=== PATIENT | male | born 1930 | race Caucasian/White ===

== ENCOUNTER 2019-08-26 23:24 | Inpatient (IN) ==
[2019-08-26] MEDS ORDERED: NITROGLYCERIN 2% OINTMENT 30GM TUBE EXT STA (23:45)
[2019-08-26] MEDS ORDERED: SODIUM CHLORIDE 0.9% 1000ML 1,000 ML IV SCH (23:45)
[2019-08-26] MEDS ORDERED: fentaNYL citrate 100 MCG/2 ML VIAL IV PRN (23:45)
[2019-08-26] MEDS ORDERED: FAMOTIDINE 20MG/5ML IV PUSH IV STA (23:45)
--- NOTE | 2019-08-26 23:50 | Emergency Department Note ---
History of Present Illness General Chief complaint: Chest Pain Stated complaint: CHEST PAIN Time Seen by Provider: 08/26/19 23:33 Source: patient Mode of arrival: EMS Limitations: no limitations History of Present Illness Provider complaint: Left-sided chest pain Onset (ago): hour(s) 5 Location: chest Radiation: neck Severity: moderate Pain Consistency: + constant Current Pain Intensity: 4 Quality: + constant Relieved By: + none Exacerbated By: + movement Associated symptoms: + cough; no fever/chills, no nausea/vomiting, no shortness of breath and no syncope Treatments prior to arrival: aspirin and other (Nitro) This 88-year-old male patient [facility] who presents via EMS due to complaints of chest pain. Patient states the chest pain originally started earlier this evening after dinner. Patient states chest pain began to slowly radiate up towards his neck and left jaw. No accompanying shortness of breath. No radiation into the back or arms. Patient states it does feel similar to his prior heart attacks. Patient with a significant cardiac history including heart attack, CABG, and pacemaker. Patient states he has had a mild cough recently, no difficulty breathing with it, no hemoptysis, no fevers or chills. Patient denies any exposure to any known coronavirus positive individual. 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 Patient states staff at the facility gave him nitro which helped a little but did not resolve his pain. He states EMS then gave him aspirin and additional nitro which again helped but his pain was not completely resolved. Patient states he has had increased reflux type symptoms recently, and staff only gave him ice water for it. Patient states the pain tonight does not feel like what he perceives as his prior reflux. Patient states he is he does not take a medication for reflux daily. Pt seen during a time of high acuity and national emergency pandemic while wearing PPE. Home Medications Home Medications Medication Instructions Recorded Confirmed Type atorvastatin 10 mg PO DAILY 08/26/19 08/26/19 History carbamazepine 600 mg PO Q12 08/26/19 08/26/19 History docusate sodium [Colace] 100 mg PO DAILY 08/26/19 08/26/19 History furosemide 80 mg PO BID 08/26/19 08/26/19 History ipratropium-albuterol 3 ml INHALATION QID 08/26/19 08/27/19 History ondansetron HCl 4 mg PO Q6 PRN 08/26/19 08/26/19 History potassium chloride 40 meq PO BID 08/26/19 08/26/19 History warfarin 5 mg PO HS 08/26/19 08/26/19 History loratadine 10 mg PO DAILY 08/27/19 08/27/19 History lorazepam 0.25 mg PO BID 08/27/19 08/27/19 History losartan 25 mg PO DAILY 08/27/19 08/27/19 History metoprolol succinate 25 mg PO DAILY 08/27/19 08/27/19 History montelukast 10 mg PO DAILY 08/27/19 08/27/19 History pantoprazole 40 mg PO DAILY 08/27/19 08/27/19 History rosuvastatin 10 mg PO DAILY 08/27/19 08/27/19 History sertraline 50 mg PO DAILY 08/27/19 08/27/19 History theophylline 400 mg PO DAILY 08/27/19 08/27/19 History tiotropium bromide [Spiriva with 1 cap INHALATION DAILY 08/27/19 08/27/19 History HandiHaler] Allergies Allergy/AdvReac Type Severity Reaction Status Date / Time dalteparin,porcine Allergy Unknown Verified 08/27/19 00:17 enalapril Allergy Unknown Verified 08/27/19 00:17 erythromycin base Allergy Unknown Verified 08/27/19 00:17 lidocaine Allergy Unknown Verified 08/27/19 00:17 Penicillins Allergy Unknown Verified 08/27/19 00:17 propofol Allergy Unknown Verified 08/27/19 00:17 simvastatin [From Zocor] Allergy Unknown Verified 08/27/19 00:17 tinzaparin,porcine Allergy Unknown Verified 08/27/19 00:17 anesthesia [id number] Allergy Unknown Uncoded 08/27/19 00:17 LWM Heparin Allergy Unknown Uncoded 08/27/19 00:17 porcine extract skin test Allergy Unknown Uncoded 08/27/19 00:17 Past Med/Surg History Medical History Adjustment disorder Anemia CAD (coronary artery disease) of artery bypass graft Cardiac pacemaker (Acute) CKD (chronic kidney disease) COPD (chronic obstructive pulmonary disease) Diabetes mellitus type 2 in nonobese DVT (deep venous thrombosis) MELVIN (generalized anxiety disorder) GERD (gastroesophageal reflux disease) Hyperlipidemia Hypertension TIP (obstructive sleep apnea) Osteoarthritis Paroxysmal atrial fibrillation Polyneuropathy Pulmonary embolism Sick sinus syndrome Trigeminal neuralgia Surgical History S/P CABG (coronary artery bypass graft) Social History Communication Ability: Effective 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 and A total of 10 systems reviewed and were otherwise negative Physical Exam Vital Signs Vital Signs - 24 hr 08/26/19 23:30 08/27/19 00:24 Temperature 36.9 C Temperature Source Oral Pulse Rate 73 Pulse Rate [Right] 61 Pulse Rhythm [Right] Regular Pulse Strength [Right] Normal Respiratory Rate 16 16 Respiratory Effort / Characteristics Non-Labored Spontaneous Non-Labored Spontaneous Respiratory Depth Normal Normal Blood Pressure 117/66 Blood Pressure [Right Arm] 114/59 L Blood Pressure Mean 83 Blood Pressure Mean [Right Arm] 77 Blood Pressure Position Lying Pulse Oximetry 94 96 Oxygen Delivery Method Nasal Cannula Nasal Cannula Oxygen Flow Rate 2 2 Sepsis Recent Fever Within 48 Hours No Sepsis Action Taken by Nursing No Action Required GENERAL: alert, well appearing, well nourished, no distress, non-toxic EYE EXAM: normal conjunctiva, PERRL and EOM's grossly intact OROPHARYNX: no exudate, no erythema, lips, buccal mucosa, and tongue normal and mucous membranes are moist NECK: supple, no nuchal rigidity, no adenopathy, non-tender LUNGS: Clear to auscultation. Normal chest wall mechanics, no w/r/r HEART: no murmurs, S1 normal and S2 normal, no reproducible chest wall tenderness ABDOMEN: abdomen soft, non-tender, normo-active bowel sounds, no masses, no rebound or guarding. BACK: Back is symmetrical on inspection and there is no deformity, no midline tenderness, no CVA tenderness. SKIN: no rashes and no bruising UPPER EXTREMITIES: upper extremities are grossly normal. FROM, nml pulses b/l. LOWER EXTREMITIES: trace pitting edema. FROM, nml pulses b/l. NEURO EXAM: Normal sensorium, cranial nerves II-XII grossly intact, normal speech, no gross weakness of arms, no gross weakness of legs. Gross sensation intact. Course Course 0040: Patient updated on results at bedside, daughter at bedside as well. Patient states he is still having slight pain, although medications are helping. 0055: Case discussed with Dr. Manjarrez. Administered Medications Albuterol (Duoneb) 3 ml NEB QIDR KAITLYN Stop: 09/26/19 06:59 Last Admin: 08/27/19 19:09 Dose: 3 ml Documented by: [id number] Admin: 08/27/19 15:20 Dose: 3 ml Documented by: [id number] Admin: 08/27/19 11:18 Dose: 3 ml Documented by: [id number] Admin: 08/27/19 06:59 Dose: 3 ml Documented by: [id number] Carbamazepine (Tegretol) 400 mg PO Q12H KAITLYN Stop: 09/26/19 20:59 Last Admin: 08/27/19 20:59 Dose: 400 mg Documented by: [id number] Docusate Sodium (Colace) 100 mg PO DAILY KAITLYN Stop: 09/26/19 08:59 Last Admin: 08/27/19 08:40 Dose: 100 mg Documented by: [id number] Insulin Aspart (Novolog Flexpen) 0 units SC ACHS KAITLYN Stop: 09/26/19 11:29 Last Admin: 08/27/19 22:11 Dose: Not Given Documented by: [id number] Cosigned by: [id number] Admin: 08/27/19 17:56 Dose: Not Given Documented by: [id number] Cosigned by: [id number] Admin: 08/27/19 11:32 Dose: Not Given Documented by: [id number] Cosigned by: [id number] Loratadine (Claritin) 10 mg PO DAILY KAITLYN Stop: 09/26/19 08:59 Last Admin: 08/27/19 08:40 Dose: 10 mg Documented by: [id number] Lorazepam (Ativan) 0.25 mg PO BID KAITLYN Stop: 09/26/19 08:59 Last Admin: 08/27/19 22:11 Dose: Not Given Documented by: [id number] Admin: 08/27/19 08:39 Dose: 0.25 mg Documented by: [id number] Losartan Potassium (Cozaar) 25 mg PO DAILY KAITLYN Stop: 09/26/19 08:59 Last Admin: 08/27/19 08:40 Dose: 25 mg Documented by: [id number] Metoprolol Succinate (Toprol Xl) 25 mg PO DAILY KAITLYN Stop: 09/26/19 08:59 Last Admin: 08/27/19 08:41 Dose: 25 mg Documented by: [id number] Montelukast Sodium (Singulair) 10 mg PO HS KAITLYN Stop: 09/26/19 20:59 Last Admin: 08/27/19 21:00 Dose: 10 mg Documented by: [id number] Pantoprazole Sodium (Protonix) 40 mg PO DAILY KAITLYN Stop: 09/26/19 08:59 Last Admin: 08/27/19 08:42 Dose: 40 mg Documented by: [id number] Potassium Chloride (Klor-Con M20) 20 meq PO BID KAITLYN Stop: 09/26/19 08:59 Last Admin: 08/27/19 21:02 Dose: 20 meq Documented by: [id number] Admin: 08/27/19 08:42 Dose: 20 meq Documented by: [id number] Rosuvastatin Calcium (Crestor) 10 mg PO DAILY KAITLYN Stop: 09/26/19 08:59 Last Admin: 08/27/19 08:42 Dose: 10 mg Documented by: [id number] Sertraline HCl (Zoloft) 50 mg PO DAILY KAITLYN Stop: 09/26/19 08:59 Last Admin: 08/27/19 08:42 Dose: 50 mg Documented by: [id number] Theophylline (Theophylline Er) 400 mg PO DAILY KAITLYN Stop: 09/26/19 08:59 Last Admin: 08/27/19 08:42 Dose: 400 mg Documented by: [id number] Umeclidinium [place] (Incruse Ellipta) 1 puffs INH DAILY KAITLYN Stop: 09/26/19 08:59 Last Admin: 08/27/19 08:43 Dose: 1 puffs Documented by: [id number] Warfarin Sodium (Coumadin) 2.5 mg PO DAILY@1600 [facility] Stop: 09/26/19 15:59 Last Admin: 08/27/19 17:09 Dose: 2.5 mg Documented by: [id number] Discontinued Medications Aspirin (Ecotrin Ectab) 81 mg PO QAM [facility] Stop: 09/26/19 08:59 Last Admin: 08/27/19 08:40 Dose: 81 mg Documented by: [id number] Famotidine (Pepcid 20mg Iv Push) 20 mg IV ONE STA Stop: 08/26/19 23:46 Last Admin: 08/27/19 00:10 Dose: 20 mg Documented by: [id number] Fentanyl Citrate (Fentanyl Citrate) 50 mcg IV Q15M PRN PRN Reason: Pain Stop: 09/09/19 23:44 Last Admin: 08/27/19 01:04 Dose: 50 mcg Documented by: [id number] Sodium Chloride (Nss 1000ml) 1,000 mls @ 100 mls/hr IV .Q10H KAITLYN Stop: 09/25/19 23:44 Last Infusion: 08/27/19 08:29 Dose: 0 mls/hr Documented by: [id number] Admin: 08/27/19 00:10 Dose: 100 mls/hr Documented by: [id number] Sodium Chloride (1/2 Nss) 1,000 mls @ 50 mls/hr IV .Q20H KAITLYN Stop: 09/26/19 02:29 Last Infusion: 08/27/19 08:28 Dose: 0 mls/hr Documented by: [id number] Admin: 08/27/19 04:49 Dose: 50 mls/hr Documented by: [id number] Dextrose/Sodium Chloride (D5w And 1/2nss) 1,000 mls @ 60 mls/hr IV .[id number] KAITLYN Stop: 09/26/19 07:29 Last Infusion: 08/27/19 12:59 Dose: 0 mls/hr Documented by: [id number] Admin: 08/27/19 08:47 Dose: 60 mls/hr Documented by: [id number] Insulin Aspart (Novolog Flexpen) 0 units SC ACHS KAITLYN Stop: 09/26/19 04:30 Last Admin: 08/27/19 07:19 Dose: Not Given Documented by: [id number] Cosigned by: [id number] Insulin Aspart (Novolog Flexpen) 0 units SC Q6 [facility]N Stop: 09/26/19 05:59 Last Admin: 08/27/19 06:17 Dose: Not Given Documented by: [id number] Cosigned by: [id number] Montelukast Sodium (Singulair) 10 mg PO DAILY KAITLYN Stop: 09/26/19 08:59 Last Admin: 06/24/20 09:18 Dose: Not Given Documented by: [id number] Nitroglycerin (Nitro-Bid 2%) 1 inch EXT NOW STA Stop: 08/26/19 23:46 Last Admin: 08/27/19 00:09 Dose: 1 inch Documented by: [id number] Non-Formulary Medication (Carbamazepine) 600 mg PO Q12 KAITLYN Last Admin: 08/27/19 07:19 Dose: Not Given Documented by: [id number] Medical Decision Making Differential Diagnosis Differential diagnoses includes but is not limited to acute coronary syndrome, myocardial infarction, pericarditis, pulmonary embolus, aortic dissection, pneumonia, pneumothorax, musculoskeletal, shingles, esophageal. Medical Records Attestation: I reviewed the patient's medical records. Home Medications Current Medication List: was personally reviewed by me Laboratory Data Attestation: I reviewed the patient's lab results. Result diagrams: 08/27/19 06:38 08/27/19 06:38 Lab Results 08/26/19 08/26/19 08/26/19 Range/Units 23:14 23:14 23:14 WBC 7.48 (4.8-10.8) K/uL RBC 3.58 L (4.7-6.1) M/uL Hgb 11.2 L (14.0-18.0) g/dL Hct 35.6 L (42-52) % MCV 99.4 (80-100) fL MCH 31.3 (25-34) pg MCHC 31.5 L (32-36) g/dL RDW Std Deviation 52.0 H (36.4-46.3) fL RDW Coeff of Cherelle 14.5 (11.5-14.5) % Plt Count 310 (130-400) K/uL MPV 10.9 H (7.4-10.4) fL Immature Gran % (Auto) 0.4 % Neut % (Auto) 78.2 % Lymph % (Auto) 13.1 % [place] % (Auto) 7.0 % Eos % (Auto) 1.2 % Baso % (Auto) 0.1 % Neut # (Auto) 5.85 (1.4-6.5) K/uL Lymph # (Auto) 0.98 L (1.2-3.4) K/uL [place] # (Auto) 0.52 (0.11-0.59) K/uL Eos # (Auto) 0.09 (0-0.5) K/uL Baso # (Auto) 0.01 (0-0.2) K/uL Immature Gran # (Auto) 0.03 H (0.00-0.02) K/uL PT 20.9 H (9.0-12.0) Seconds INR 2.1 H (0.9-1.1) Sodium 141 (136-145) mmol/L Potassium 4.5 (3.5-5.1) mmol/L Chloride 108 H (98-107) mmol/L Carbon Dioxide 27 (21-32) mmol/L Anion Gap 6.0 (3-11) BUN 18 (7-18) mg/dl Creatinine 1.12 (0.6-1.4) mg/dl Est Cr Clr Drug Dosing 46.5 ml/min Est GFR ( Amer) 68.1 Est GFR (Non-Af Amer) 58.7 BUN/Creatinine Ratio 16.0 (10-20) Glucose 94 (70-99) mg/dl Calcium 8.4 L (8.5-10.1) mg/dl Magnesium 2.2 (1.8-2.4) mg/dl Total Bilirubin 0.3 (0.2-1) mg/dl AST 10 L (15-37) U/L ALT 10 L (12-78) U/L Alkaline Phosphatase 128 H (45-117) U/L Troponin I 0.030 (0-0.045) ng/ml NT-Pro-B Natriuret Pep 766 (0-1800) pg/ml Total Protein 6.5 (6.4-8.2) gm/dl Albumin 2.4 L (3.4-5.0) gm/dl Globulin 4.1 H (2.5-4.0) gm/dl Albumin/Globulin Ratio 0.6 L (0.9-2) Lipase 126 (73-393) U/L TSH (0.300-4.500) uIu/ml Carbamazepine (4-12) mcg/ml Theophylline (10-20) mcg/ml 08/27/19 08/27/19 Range/Units 01:45 01:45 WBC (4.8-10.8) K/uL RBC (4.7-6.1) M/uL Hgb (14.0-18.0) g/dL Hct (42-52) % MCV (80-100) fL MCH (25-34) pg MCHC (32-36) g/dL RDW Std Deviation (36.4-46.3) fL RDW Coeff of Cherelle (11.5-14.5) % Plt Count (130-400) K/uL MPV (7.4-10.4) fL Immature Gran % (Auto) % Neut % (Auto) % Lymph % (Auto) % [place] % (Auto) % Eos % (Auto) % Baso % (Auto) % Neut # (Auto) (1.4-6.5) K/uL Lymph # (Auto) (1.2-3.4) K/uL [place] # (Auto) (0.11-0.59) K/uL Eos # (Auto) (0-0.5) K/uL Baso # (Auto) (0-0.2) K/uL Immature Gran # (Auto) (0.00-0.02) K/uL PT (9.0-12.0) Seconds INR (0.9-1.1) Sodium (136-145) mmol/L Potassium (3.5-5.1) mmol/L Chloride (98-107) mmol/L Carbon Dioxide (21-32) mmol/L Anion Gap (3-11) BUN (7-18) mg/dl Creatinine (0.6-1.4) mg/dl Est Cr Clr Drug Dosing ml/min Est GFR ( Amer) Est GFR (Non-Af Amer) BUN/Creatinine Ratio (10-20) Glucose (70-99) mg/dl Calcium (8.5-10.1) mg/dl Magnesium (1.8-2.4) mg/dl Total Bilirubin (0.2-1) mg/dl AST (15-37) U/L ALT (12-78) U/L Alkaline Phosphatase (45-117) U/L Troponin I 0.033 (0-0.045) ng/ml NT-Pro-B Natriuret Pep (0-1800) pg/ml Total Protein (6.4-8.2) gm/dl Albumin (3.4-5.0) gm/dl Globulin (2.5-4.0) gm/dl Albumin/Globulin Ratio (0.9-2) Lipase (73-393) U/L TSH 2.880 (0.300-4.500) uIu/ml Carbamazepine 12.1 H* (4-12) mcg/ml Theophylline 3 L (10-20) mcg/ml Imaging Data My Impression: X-ray: I interpreted the following studies. Chest: A single view study of the chest was reviewed and was negative for effusion, pulmonary edema, or wide mediastinum. Pacemaker and sternotomy wires noted. Questionable slight increased interstitial markings in the left lower lobe without focal consolidation, mild cardiomegaly noted. ECG Data Attestation: I personally reviewed and interpreted this ECG as follows: Indication: + chest pain Rate (beats per minute): 68 Rhythm: + other (paced) ECG Intervals/blocks: + IVCD and + Prolonged QT ECG [place]: + Left axis deviation ECG ST segments: + Nonspecific ST abnormalities Blood Pressure Blood Pressure Findings: Normal blood pressure Blood Pressure Disposition: further management by hospitalist [facility] Narrative Patient well-appearing here despite complaints. Patient with a significant cardiac history and elevated heart score complaining of pain that felt similar to his prior heart attack. Patient's EKG paced, no obvious changes otherwise noted. Patient's first troponin negative. Patient's chest x-ray reassuring. Patient was hemodynamically stable. He was given additional nitro paste after being given nitro by [facility] staff and EMS. Patient already had aspirin prior to arrival. Patient stated pain was improved but not entirely resolved. Patient was then given additional fentanyl for pain control. Case was discussed with hospitalist for additional evaluation management. At this time I do not s uspect dissection, PE, pneumonia, coronavirus, perforation, GI bleed, tamponade, effusion. Pacemaker appears to be functioning appropriately. Patient did not appear to be in any distress on the emergency room. I discussed all results with him and a daughter at bedside and they verbalized understanding and were in agreement with plan. An order was placed for continuous cardiac monitoring. The monitor shows a rate of _66 with paced rhythm. Impression & Plan Chest pain, Cardiac pacemaker Discharge Plan Visit Data *Final* Discharge Date/Time: 08/27/19 03:06 Chief Complaint: Chest Pain Stated Complaint: CHEST PAIN ED Provider: Kristin Hidalgo Discharge Problem: Chest pain, Cardiac pacemaker Patient Disposition: Admitted As Inpatient Discharge Instructions Interventions: ED Discharge Assessment Last Done: 08/27/19 03:06 Discharge Problem: Chest pain Qualifiers: Chest pain type: unspecified Qualified Code(s): R07.9 - Chest pain, unspecified
[2019-08-27] LABS: Basophils # (auto) 0.01 K/uL (0-0.2); Basophils % (auto) 0.1 %; Eosinophils # (auto) 0.09 K/uL (0-0.5); Eosinophils % (auto) 1.2 %; Hematocrit (blood only) 35.6 % (42-52); Hemoglobin 11.2 g/dL (14.0-18.0); Immature Granulocytes # (auto) 0.03 K/uL (0.00-0.02); Immature Granulocytes % (auto) 0.4 %; Lymphocytes # (auto) 0.98 K/uL (1.2-3.4); Lymphocytes % (auto) 13.1 %; Mean Corpuscular Hemoglobin 31.3 pg (25-34); Mean Corpuscular Hgb Conc 31.5 g/dL (32-36); Mean Corpuscular Volume 99.4 fL (80-100); Mean Platelet Volume 10.9 fL (7.4-10.4); Monocytes # (auto) 0.52 K/uL (0.11-0.59); Neutrophils # (auto) 5.85 K/uL (1.4-6.5); Neutrophils % (auto) 78.2 %; Platelet Count 310 K/uL (130-400); RDW Coefficient of Variation 14.5 % (11.5-14.5); Red Blood Count 3.58 M/uL (4.7-6.1); White Blood Count 7.48 K/uL (4.8-10.8)
[2019-08-27 00:10] LABS: INR 2.1 (0.9-1.1); Prothrombin Time 20.9 Seconds (9.0-12.0)
[2019-08-27 00:22] LABS: Albumin Level 2.4 gm/dl (3.4-5.0); Calcium 8.4 mg/dl (8.5-10.1); Creatinine Clr Calc Pharmacy 46.5 ml/min; Est GFR (African American) 68.1; Est GFR (Non-African American) 58.7; Magnesium 2.2 mg/dl (1.8-2.4); Potassium 4.5 mmol/L (3.5-5.1)
[2019-08-27 00:27] LABS: Albumin Globulin Ratio 0.6 (0.9-2); Bilirubin,Total 0.3 mg/dl (0.2-1); Globulin 4.1 gm/dl (2.5-4.0); Total Protein 6.5 gm/dl (6.4-8.2); Troponin I 0.03 ng/ml (0-0.045)
--- NOTE | 2019-08-27 02:14 | History & Physical Report ---
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 on Coumadin, INR therapeutic hypertension, BP on the lower side hyperlipidemia on statin Rx trigeminal neuralgia on carbamazepine Rx, carbamazepine level slightly supratherapeutic DM 2 diet-controlled, well-controlled as of recent outpatient hemoglobin A1c of 5.08 January 2019 chronic anemia, hemoglobin at baseline past tobacco abuse OBS as per case management PCU Aspirin for secondary CAD prevention Continue home beta-rodney, statin Rx Follow troponin Update lipid profile TTE, Cardiology consult RE ACS N.p.o., hold Coumadin for now until patient seen by Cardiology in anticipation of procedure. Remove Nitropaste given current borderline BP. Appropriate to hold carbamazepine for now given supratherapeutic level, recheck level tomorrow a.m. ISS BG goal [id number], update hemoglobin A1c DVT prophylaxis. IV heparin if INR less than 2 while Coumadin on hold until patient seen by cardiology. Full code Text document was generated using [employer] voice recognition software. It may contain grammatical or spelling errors. Kindly contact undersigned for clarification of any documentation item in question. History of Present Illness Chief Complaint: Chest pain Primary Care Provider: [facility] History obtained from patient and records. 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 Patient confined at [facility] last month for recurrent DVT left lower extremity. INR at that time was noted to be subtherapeutic. Possible medication noncompliance, deconditioning as per records. Patient transferred to [facility] for placement. Last night around dinnertime, patient noted achy left chest pain going to his neck and left jaw similar to heart attacks in the past. No shortness of breath, no diaphoresis. No new cough/flulike symptoms. Relief with aspirin and nitroglycerin administered by EMS. Patient brought to the ER for evaluation. Nitropaste placed at the ER. 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 Allergies Allergy/AdvReac Type Severity Reaction Status Date / Time dalteparin,porcine Allergy Unknown Verified 08/27/19 00:17 enalapril Allergy Unknown Verified 08/27/19 00:17 erythromycin base Allergy Unknown Verified 08/27/19 00:17 lidocaine Allergy Unknown Verified 08/27/19 00:17 Penicillins Allergy Unknown Verified 08/27/19 00:17 propofol Allergy Unknown Verified 08/27/19 00:17 simvastatin [From Zocor] Allergy Unknown Verified 08/27/19 00:17 tinzaparin,porcine Allergy Unknown Verified 08/27/19 00:17 anesthesia [id number] Allergy Unknown Uncoded 08/27/19 00:17 LWM Heparin Allergy Unknown Uncoded 08/27/19 00:17 porcine extract skin test Allergy Unknown Uncoded 08/27/19 00:17 Home Medications Home Medications Medication Instructions Recorded Confirmed Type atorvastatin 10 mg PO DAILY 08/26/19 08/26/19 History carbamazepine 600 mg PO Q12 08/26/19 08/26/19 History docusate sodium [Colace] 100 mg PO DAILY 08/26/19 08/26/19 History furosemide 80 mg PO BID 08/26/19 08/26/19 History ipratropium-albuterol 3 ml INHALATION QID 08/26/19 08/27/19 History ondansetron HCl 4 mg PO Q6 PRN 08/26/19 08/26/19 History potassium chloride 40 meq PO BID 08/26/19 08/26/19 History warfarin 5 mg PO HS 08/26/19 08/26/19 History loratadine 10 mg PO DAILY 08/27/19 08/27/19 History lorazepam 0.25 mg PO BID 08/27/19 08/27/19 History losartan 25 mg PO DAILY 08/27/19 08/27/19 History metoprolol succinate 25 mg PO DAILY 08/27/19 08/27/19 History montelukast 10 mg PO DAILY 08/27/19 08/27/19 History pantoprazole 40 mg PO DAILY 08/27/19 08/27/19 History rosuvastatin 10 mg PO DAILY 08/27/19 08/27/19 History sertraline 50 mg PO DAILY 08/27/19 08/27/19 History theophylline 400 mg PO DAILY 08/27/19 08/27/19 History tiotropium bromide [Spiriva with 1 cap INHALATION DAILY 08/27/19 08/27/19 History HandiHaler] Past Med/Surg History Medical History Adjustment disorder Anemia CAD (coronary artery disease) of artery bypass graft Cardiac pacemaker (Acute) CKD (chronic kidney disease) COPD (chronic obstructive pulmonary disease) Diabetes mellitus type 2 in nonobese DVT (deep venous thrombosis) MELVIN (generalized anxiety disorder) GERD (gastroesophageal reflux disease) Hyperlipidemia Hypertension TIP (obstructive sleep apnea) Osteoarthritis Paroxysmal atrial fibrillation Polyneuropathy Pulmonary embolism Sick sinus syndrome Trigeminal neuralgia Surgical History S/P CABG (coronary artery bypass graft) Social History Communication Ability: Effective English Teacher Required: No Beliefs That Will Affect Care: None Other Information That Helps Us Care for You: No Feels Safe at Home: Yes Safety Concerns: Feels Safe At This Time Smoking Status: Former smoker Hx Alcohol Use: No Hx Substance Use: No Review of Systems Review of Systems: As per HPI, all 10 systems reviewed, all other ROS negative Physical Exam Physical Exam: GENERAL: Comfortable, slightly hard of hearing, no respiratory distress SKIN: Pallor , warm HEENT: [place] palpebral conjunctivae, no ptosis, moist buccal mucosa, nasal cannula in place NECK : Supple, no tenderness CHEST : Decreased breath sounds , no tenderness HEART : Bradycardic , no obvious murmurs ABDOMEN: Some distention, nontender EXTREMITIES : Minimal LE swelling, no LE tenderness, no other conspicuous deformities noted NEUROLOGIC : Coherent, no facial asymmetry, mild hearing impairment, no other gross focality Results & Data Results & Data ([facility]) Vital Signs (Past 12 Hours) Vital Signs Temp Pulse Pulse Resp BP BP Pulse Ox 08/27/19 01:50 51 L 16 112/56 L 94 06/24/20 00:24 61 16 114/59 L 96 08/26/19 23:30 36.9 C 73 16 117/66 94 Laboratory Results Laboratory Results WBC 7.48 K/uL (4.8-10.8) 08/26/19 23:14 RBC 3.58 M/uL (4.7-6.1) L 08/26/19 23:14 Hgb 11.2 g/dL (14.0-18.0) L 08/26/19 23:14 Hct 35.6 % (42-52) L 08/26/19 23:14 MCV 99.4 fL (80-100) 08/26/19 23:14 MCH 31.3 pg (25-34) 08/26/19 23:14 MCHC 31.5 g/dL (32-36) L 08/26/19 23:14 RDW Std Deviation 52.0 fL (36.4-46.3) H 08/26/19 23:14 RDW Coeff of Cherelle 14.5 % (11.5-14.5) 08/26/19 23:14 Plt Count 310 K/uL (130-400) 08/26/19 23:14 MPV 10.9 fL (7.4-10.4) H 08/26/19 23:14 Immature Gran % (Auto) 0.4 % 08/26/19 23:14 Neut % (Auto) 78.2 % 08/26/19 23:14 Lymph % (Auto) 13.1 % 08/26/19 23:14 [place] % (Auto) 7.0 % 08/26/19 23:14 Eos % (Auto) 1.2 % 08/26/19 23:14 Baso % (Auto) 0.1 % 08/26/19 23:14 Neut # (Auto) 5.85 K/uL (1.4-6.5) 08/26/19 23:14 Lymph # (Auto) 0.98 K/uL (1.2-3.4) L 08/26/19 23:14 [place] # (Auto) 0.52 K/uL (0.11-0.59) 08/26/19 23:14 Eos # (Auto) 0.09 K/uL (0-0.5) 08/26/19 23:14 Baso # (Auto) 0.01 K/uL (0-0.2) 08/26/19 23:14 Immature Gran # (Auto) 0.03 K/uL (0.00-0.02) H 08/26/19 23:14 PT 20.9 Seconds (9.0-12.0) H 08/26/19 23:14 INR 2.1 (0.9-1.1) H 08/26/19 23:14 Sodium 141 mmol/L (136-145) 08/26/19 23:14 Potassium 4.5 mmol/L (3.5-5.1) 08/26/19 23:14 Chloride 108 mmol/L (98-107) H 08/26/19 23:14 Carbon Dioxide 27 mmol/L (21-32) 08/26/19 23:14 Anion Gap 6.0 (3-11) 08/26/19 23:14 BUN 18 mg/dl (7-18) 08/26/19 23:14 Creatinine 1.12 mg/dl (0.6-1.4) 08/26/19 23:14 Est Cr Clr Drug Dosing 46.5 ml/min 08/26/19 23:14 Est GFR ( Amer) 68.1 08/26/19 23:14 Est GFR (Non-Af Amer) 58.7 08/26/19 23:14 BUN/Creatinine Ratio 16.0 (10-20) 08/26/19 23:14 Glucose 94 mg/dl (70-99) 08/26/19 23:14 Calcium 8.4 mg/dl (8.5-10.1) L 08/26/19 23:14 Magnesium 2.2 mg/dl (1.8-2.4) 08/26/19 23:14 Total Bilirubin 0.3 mg/dl (0.2-1) 08/26/19 23:14 AST 10 U/L (15-37) L 08/26/19 23:14 ALT 10 U/L (12-78) L 08/26/19 23:14 Alkaline Phosphatase 128 U/L (45-117) H 08/26/19 23:14 Troponin I 0.030 ng/ml (0-0.045) 08/26/19 23:14 NT-Pro-B Natriuret Pep 766 pg/ml (0-1800) 08/26/19 23:14 Total Protein 6.5 gm/dl (6.4-8.2) 08/26/19 23:14 Albumin 2.4 gm/dl (3.4-5.0) L 08/26/19 23:14 Globulin 4.1 gm/dl (2.5-4.0) H 08/26/19 23:14 Albumin/Globulin Ratio 0.6 (0.9-2) L 08/26/19 23:14 Lipase 126 U/L (73-393) 08/26/19 23:14 Diagnostic Findings Chest x-ray as per my interpretation elevated right hemidiaphragm, no congestion EKG as per my interpretation : Rate 70, paced rhythm
[2019-08-27] MEDS ORDERED: SODIUM CHLORIDE 0.45 % 1,000 ML IV SCH (02:30)
[2019-08-27 02:54] LABS: Thyroid Stimulating Hormone 2.88 uIu/ml (0.300-4.500); Troponin I 0.033 ng/ml (0-0.045)
[2019-08-27 03:37] LABS: Carbamazepine Tegretol 12.1 mcg/ml (4-12)
[2019-08-27] MEDS ORDERED: GLUCOSE 40% GEL 15 GM TUBE PO PRN (04:31)
[2019-08-27] MEDS ORDERED: CARBOHYDRATES FOR HYPOGLYCEMIA PO PRN (04:31)
[2019-08-27] MEDS ORDERED: DEXTROSE 50% 50 ML SYRINGE IV PRN (04:31)
[2019-08-27] MEDS ORDERED: NITROGLYCERIN SL 0.4 MG/TAB TAB SL PRN (04:31)
[2019-08-27] MEDS ORDERED: INSULIN ASPART 100 UNITS/ML 3 ML PEN SC SCH ×2 (04:31→06:00)
[2019-08-27] MEDS ORDERED: GLUCAGON FOR INJ 1 MG VIAL SQ PRN (04:31)
[2019-08-27] MEDS ORDERED: ACETAMINOPHEN 325 MG TAB PO PRN (04:31)
[2019-08-27] MEDS ORDERED: CARBAMAZEPINE 600 MG PO SCH ×2 (04:31→09:00)
[2019-08-27] MEDS ORDERED: GLUCOSE 10 TABS/TUBE PO PRN (04:31)
[2019-08-27] MEDS ORDERED: PROMETHAZINE HCL 12.5 MG in SODIUM CHLORIDE 0.9% 50 ML IV PRN (04:31)
[2019-08-27] MEDS ORDERED: MoRPHine SULFATE 2 MG/ML CARP IV PRN (04:42)
[2019-08-27] MEDS ORDERED: Nursing to Pharmacy Communication SCH (04:45)
[2019-08-27 06:53] LABS: Basophils # (auto) 0.01 K/uL (0-0.2); Basophils % (auto) 0.2 %; Eosinophils # (auto) 0.16 K/uL (0-0.5); Eosinophils % (auto) 2.5 %; Hematocrit (blood only) 36.3 % (42-52); Hemoglobin 11.3 g/dL (14.0-18.0); Immature Granulocytes # (auto) 0.03 K/uL (0.00-0.02); Immature Granulocytes % (auto) 0.5 %; Lymphocytes # (auto) 1.05 K/uL (1.2-3.4); Lymphocytes % (auto) 16.3 %; Mean Corpuscular Hemoglobin 30.8 pg (25-34); Mean Corpuscular Hgb Conc 31.1 g/dL (32-36); Mean Corpuscular Volume 98.9 fL (80-100); Mean Platelet Volume 10.1 fL (7.4-10.4); Monocytes # (auto) 0.49 K/uL (0.11-0.59); Monocytes % (auto) 7.6 %; Neutrophils # (auto) 4.69 K/uL (1.4-6.5); Neutrophils % (auto) 72.9 %; Platelet Count 244 K/uL (130-400); RDW Coefficient of Variation 14.7 % (11.5-14.5); RDW Standard Deviation 53.1 fL (36.4-46.3); Red Blood Count 3.67 M/uL (4.7-6.1); White Blood Count 6.43 K/uL (4.8-10.8)
[2019-08-27] MEDS: ALBUT/IPRATROP 3MG/0.5MG NEB 3 ML VIAL NEB SCH ×4 (06:59→19:09)
[2019-08-27 07:04] LABS: INR 2.2 (0.9-1.1); Prothrombin Time 22.3 Seconds (9.0-12.0)
[2019-08-27 07:28] LABS: BUN Creatinine Ratio 15.1 (10-20); Calcium 8.7 mg/dl (8.5-10.1); Creatinine Clr Calc Pharmacy 46.5 ml/min; Est GFR (African American) 68.1; Est GFR (Non-African American) 58.7; Potassium 4.2 mmol/L (3.5-5.1)
[2019-08-27] MEDS ORDERED: D5W AND 1/2NSS 1,000 ML IV SCH (07:30)
[2019-08-27 07:33] LABS: Troponin I 0.035 ng/ml (0-0.045)
--- NOTE | 2019-08-27 08:01 | XRay Report ---
XR chest 1V portable CLINICAL HISTORY: Atypical chest pain COMPARISON STUDY: No previous studies for comparison. FINDINGS: There are postsurgical changes of midline sternotomy. The heart is normal in size. There is aortic tortuosity. There are hazy airspace opacities towards the left lung base. This could represen t a pneumonitis. Clinical and radiographic follow-up is recommended.[ IMPRESSION: 1. Nonspecific hazy airspace opacities visualized towards the left lung base. Clinical and radiograph ic follow-up is recommended ACT 112: Negative or not required by law. Electronically signed by: Michael Marrqouin M.D. 08/27/2019 8:00 AM
[2019-08-27] MEDS: LORazepam 0.5 MG TAB PO SCH ×2 (08:39→22:11)
[2019-08-27] MEDS: LORATADINE 10 MG TAB PO SCH (08:40)
[2019-08-27] MEDS: LOSARTAN POTASSIUM 25 MG TAB PO SCH (08:40)
[2019-08-27] MEDS: DOCUSATE SODIUM 100 MG CAP PO SCH (08:40)
[2019-08-27] MEDS: METOPROLOL SUCC 25MG EXT REL TAB PO SCH (08:41)
[2019-08-27] MEDS: SERTRALINE HCL 50 MG TABLET PO SCH (08:42)
[2019-08-27] MEDS: POTASSIUM CHLORIDE 20 MEQ TABCR PO SCH ×2 (08:42→21:02)
[2019-08-27] MEDS: ROSUVASTATIN CALCIUM 10 MG TAB PO SCH (08:42)
[2019-08-27] MEDS: THEOPHYLLINE 400 MG EXTENDED REL TAB PO SCH (08:42)
[2019-08-27] MEDS: PANTOprazole 40 MG TAB PO SCH (08:42)
[2019-08-27] MEDS: UMECLIDINIUM BROMIDE 62.5MCG/BLISTER 7 PUFFS/INHALER INH SCH (08:43)
[2019-08-27] MEDS ORDERED: MONTELUKAST SODIUM 10 MG TABLET PO SCH (09:00)
[2019-08-27] MEDS ORDERED: ASPIRIN 81 MG ECTAB PO SCH (09:00)
--- NOTE | 2019-08-27 09:29 | Cardiology Consultation ---
Date of Consultation August 27, 2019 Assessment & Plan (1) Chest pain: Episode of chest discomfort. His EKG is nondiagnostic for ischemia given chronic right ventricular pacing. Patient is comfortable at present. While his troponin levels were nondetectable, they are still within normal limi ts. The patient is frail, 88 years old, history of CABG in 1984, mid LAD, SVG to diagonal. He has a history of anteroseptal myocardial infarction in 1983, and per review of his records, cardiac catheterization 2008 with LAD, severe two- vessel CAD otherwise treatment was recommended. At this time, I recommend advancing his diet, continuing his Coumadin, INR 2.2, proceeding with conservative therapy for now. Agree with proceeding with echocardiogram for assessment of new regional wall motion abnormalities and reassessment of his LVEF. Further recommendations will be forthcoming. Case discussed with Dr. Rojas. History of Present Illness Attending Physician: Emerson Rojas MD History of Present Illness Carlos Willams is an 88 year old male seen in cardiology consultation per the request of Dr. Mckinley for the evaluation of chest discomfort. The patient typically follows with [facility] cardiology had most recently been assessed in telemedicine routine follow-up in July 2019 at which time stable cardiac signs and symptoms were noted. His dual-chamber pacemaker was noted to have 5 years of generator longevity on recent outpatient interrogation. Shortly thereafter the patient was hospitalized at [facility] from 07/14/2019 until 07/16/2019 for findings of an acute left lower extremity DVT. He has a history of a chronic right lower extremity DVT and has an inferior vena cava filter. The patient had been living at home for the last few months since his spouse was transitioned to the dementia unit at the [facility]. The patient has since been there as well. Last evening he had potato salad as part of his evening meal and shortly thereafter he began experiencing mid and left-sided chest discomfort that radiated to his neck. He states it persisted until arrival at the hospital, and subsided overnight. Currently he is in no distress. Cardiac problems 1. CAD s/p CABG x 2 1984 2. Paroxysmal atrial fibrillation 3. 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 Dyslipidemia 5. HTN 6. Chronic diastolic CHF -Remote interrogation of [employer] dual-chamber pacemaker performed 07/18/2019: Device-placed on 03/02/2015 Patient is atrial paced 97% of the time, and right ventricular paced 100% the time. Generator longevity 5 years. -Nuclear stress test performed in [place] in August, revealed evidence of an apical and septal scar, LVEF at the lower limit of normal. Echocardiogram performed [facility] 12/25/2018: Moderate sized septal wall motion abnormality LVEF 53%, moderate left atrial argument, mild mitral regurgitation mild tricuspid regurgitation, estimated pulmonary systolic pressure mildly elevated 39 mmHg. Allergies Allergy/AdvReac Type Severity Reaction Status Date / Time dalteparin,porcine Allergy Unknown Verified 08/27/19 00:17 enalapril Allergy Unknown Verified 08/27/19 00:17 erythromycin base Allergy Unknown Verified 08/27/19 00:17 lidocaine Allergy Unknown Verified 08/27/19 00:17 Penicillins Allergy Unknown Verified 08/27/19 00:17 propofol Allergy Unknown Verified 08/27/19 00:17 simvastatin [From Zocor] Allergy Unknown Verified 08/27/19 00:17 tinzaparin,porcine Allergy Unknown Verified 08/27/19 00:17 anesthesia [id number] Allergy Unknown Uncoded 08/27/19 00:17 LWM Heparin Allergy Unknown Uncoded 08/27/19 00:17 porcine extract skin test Allergy Unknown Uncoded 08/27/19 00:17 Home Medications Home Medications Medication Instructions Recorded Confirmed Type atorvastatin 10 mg PO DAILY 08/26/19 08/26/19 History carbamazepine 600 mg PO Q12 08/26/19 08/26/19 History docusate sodium [Colace] 100 mg PO DAILY 08/26/19 08/26/19 History furosemide 80 mg PO BID 08/26/19 08/26/19 History ipratropium-albuterol 3 ml INHALATION QID 08/26/19 08/27/19 History ondansetron HCl 4 mg PO Q6 PRN 08/26/19 08/26/19 History potassium chloride 40 meq PO BID 08/26/19 08/26/19 History warfarin 5 mg PO HS 08/26/19 08/26/19 History loratadine 10 mg PO DAILY 08/27/19 08/27/19 History lorazepam 0.25 mg PO BID 08/27/19 08/27/19 History losartan 25 mg PO DAILY 08/27/19 08/27/19 History metoprolol succinate 25 mg PO DAILY 08/27/19 08/27/19 History montelukast 10 mg PO DAILY 08/27/19 08/27/19 History pantoprazole 40 mg PO DAILY 08/27/19 08/27/19 History rosuvastatin 10 mg PO DAILY 08/27/19 08/27/19 History sertraline 50 mg PO DAILY 08/27/19 08/27/19 History theophylline 400 mg PO DAILY 08/27/19 08/27/19 History tiotropium bromide [Spiriva with 1 cap INHALATION DAILY 08/27/19 08/27/19 Hist ory HandiHaler] Patient History Medical History Adjustment disorder Anemia CAD (coronary artery disease) of artery bypass graft Cardiac pacemaker (Acute) CKD (chronic kidney disease) COPD (chronic obstructive pulmonary disease) Diabetes mellitus type 2 in nonobese DVT (deep venous thrombosis) MELVIN (generalized anxiety disorder) GERD (gastroesophageal reflux disease) Hyperlipidemia Hypertension TIP (obstructive sleep apnea) Osteoarthritis Paroxysmal atrial fibrillation Polyneuropathy Pulmonary embolism Sick sinus syndrome Trigeminal neuralgia Surgical History S/P CABG (coronary artery bypass graft) Social History Communication Ability: Effective [employer] Supervisor Required: No Beliefs That Will Affect Care: None Other Information That Helps Us Care for You: No Feels Safe at Home: Yes Safety Concerns: Feels Safe At This Time Smoking Status: Former smoker Hx Alcohol Use: No Hx Substance Use: No Review of Systems Review of Systems: All systems reviewed & are unremarkable except as noted in HPI & below Physical Exam Physical Exam: Temp Pulse Resp BP Pulse Ox 36.5 C 63 22 116/69 94 08/27/19 07:59 08/27/19 07:59 08/27/19 07:59 08/27/19 07:59 08/27/19 07:59 Constitutional: WD/WN, vitals as above Respiratory: normal respiratory effort, lungs clear to auscultation Cardiovascular: RRR, no murmur, no edema Chest (Breasts): Additional Comments: Left infraclavicular pacemaker pocket is clean dry and intact Gastrointestinal (Abdomen): normal bowel sounds, soft, nontender, no hepatosplenomegaly Neurologic: PERRL, EOMI, accommodation nl, no face palsy, no dysarthria Results & Data ([facility]) Vital Signs (Past 12 Hours) Vital Signs Temp Pulse Pulse Resp BP BP BP 08/27/19 07:59 36.5 C 63 22 116/69 08/27/19 06:58 66 16 08/27/19 04:14 36.5 C 68 16 112/66 08/27/19 03:34 36.9 C 61 17 149/77 H 08/27/19 03:06 52 L 16 92/50 L 08/27/19 01:50 51 L 16 112/56 L 08/27/19 00:24 61 16 114/59 L 08/26/19 23:30 36.9 C 73 16 117/66 Pulse Ox 08/27/19 07:59 94 08/27/19 06:58 94 08/27/19 04:14 97 08/27/19 03:34 94 08/27/19 03:06 94 08/27/19 01:50 94 08/27/19 00:24 96 08/26/19 23:30 94 Laboratory Results Cardiac Enzymes 08/26/19 08/27/19 08/27/19 Range/Units 23:14 01:45 06:38 AST 10 L (15-37) U/L Troponin I 0.030 0.033 0.035 (0-0.045) ng/ml Coagulation 08/26/19 08/27/19 Range/Units 23:14 06:38 PT 20.9 H 22.3 H (9.0-12.0) Seconds Lipids 08/27/19 Range/Units 06:38 Triglycerides 90 (0-150) mg/dl Cholesterol 122 (0-200) mg/dl HDL Cholesterol 41 mg/dl Cholesterol/HDL Ratio 3 CBC 08/26/19 08/27/19 Range/Units 23:14 06:38 WBC 7.48 6.43 (4.8-10.8) K/uL RBC 3.58 L 3.67 L (4.7-6.1) M/uL Hgb 11.2 L 11.3 L (14.0-18.0) g/dL Hct 35.6 L 36.3 L (42-52) % Plt Count 310 244 (130-400) K/uL Neut # (Auto) 5.85 4.69 (1.4-6.5) K/uL Lymph # (Auto) 0.98 L 1.05 L (1.2-3.4) K/uL [place] # (Auto) 0.52 0.49 (0.11-0.59) K/uL Eos # (Auto) 0.09 0.16 (0-0.5) K/uL Baso # (Auto) 0.01 0.01 (0-0.2) K/uL Comprehensive Metabolic Panel 08/26/19 08/27/19 Range/Units 23:14 06:38 Sodium 141 142 (136-145) mmol/L Potassium 4.5 4.2 (3.5-5.1) mmol/L Chloride 108 H 109 H (98-107) mmol/L Carbon Dioxide 27 28 (21-32) mmol/L BUN 18 17 (7-18) mg/dl Creatinine 1.12 1.12 (0.6-1.4) mg/dl Glucose 94 87 (70-99) mg/dl Calcium 8.4 L 8.7 (8.5-10.1) mg/dl AST 10 L (15-37) U/L ALT 10 L (12-78) U/L Alkaline Phosphatase 128 H (45-117) U/L Total Protein 6.5 (6.4-8.2) gm/dl Albumin 2.4 L (3.4-5.0) gm/dl Intake and Output 08/26/19 08/27/19 08/27/19 22:59 06:59 14:59 Intake Total 1014.167 / 1014.167 Output Total 400 / 400 Balance -400 / -400 1014.167 / 1014.167 Intake: IV 1014.167 / 1014.167 1/2 Nss 1,000 ml @ 50 mls/hr IV 182.5 / 182.5 .Q20H [facility] Rx#:[id number] Nss 1000ML 1,000 ml @ 100 mls/ 831.667 / 831.667 hr IV .Q10H [facility] Rx#:[id number] Output: Urine 400 / 400 Other: Weight 77.7 kg Diagnostic Findings EKG performed on arrival AV sequential paced rhythm at 60 bpm. Telemetry reveals AV sequential pacing in 60s. Medications Administered Current Inpatient Medications Acetaminophen (Tylenol) 325 mg PO Q6H PRN PRN Reason: Pain or Fever Stop: 09/26/19 04:30 Albuterol (Duoneb) 3 ml NEB QIDR [facility] Stop: 09/26/19 06:59 Last Admin: 08/27/19 06:59 Dose: 3 ml Documented by: Aspirin (Ecotrin Ectab) 81 mg PO QAM [facility] Stop: 09/26/19 08:59 Last Admin: 08/27/19 08:40 Dose: 81 mg Documented by: Dextrose (Dextrose 50%) 25 - 50 ml IV UD PRN; Protocol PRN Reason: Hypoglycemia Protocol Stop: 09/26/19 04:30 Docusate Sodium (Colace) 100 mg PO DAILY [facility] Stop: 09/26/19 08:59 Last Admin: 08/27/19 08:40 Dose: 100 mg Documented by: Glucagon (Glucagen) 1 mg SQ UD PRN; Protocol PRN Reason: Hypoglycemia Protocol Stop: 09/26/19 04:30 Glucose (Dex4 Glucose) 4 - 8 tabs PO UD PRN; Protocol PRN Reason: Hypoglycemia Protocol Stop: 09/26/19 04:30 Glucose (Glucose 40%) 15 - 30 gm PO UD PRN; Protocol PRN Reason: Hypoglycemia Protocol Stop: 09/26/19 04:30 Promethazine HCl 12.5 mg/ (Sodium Chloride) 50.5 mls @ 202 mls/hr IV Q6H PRN PRN Reason: Nausea And Vomiting Stop: 09/26/19 04:30 Dextrose/Sodium Chloride (D5w And 1/2nss) 1,000 mls @ 60 mls/hr IV .[id number] [facility] Stop: 09/26/19 07:29 Last Admin: 08/27/19 08:47 Dose: 60 mls/hr Documented by: Insulin Aspart (Novolog Flexpen) 0 units SC Q6 [facility] Stop: 09/26/19 05:59 Last Admin: 08/27/19 06:17 Dose: Not Given Documented by: Loratadine (Claritin) 10 mg PO DAILY [facility] Stop: 09/26/19 08:59 Last Admin: 08/27/19 08:40 Dose: 10 mg Documented by: Lorazepam (Ativan) 0.25 mg PO BID [facility] Stop: 09/26/19 08:59 Last Admin: 08/27/19 08:39 Dose: 0.25 mg Documented by: Losartan Potassium (Cozaar) 25 mg PO DAILY [facility] Stop: 09/26/19 08:59 Last Admin: 08/27/19 08:40 Dose: 25 mg Documented by: Metoprolol Succinate (Toprol Xl) 25 mg PO DAILY [facility] Stop: 09/26/19 08:59 Last Admin: 08/27/19 08:41 Dose: 25 mg Documented by: Miscellaneous (Carbohydrates For Hypoglycemia) 15 - 30 gm PO UD PRN PRN Reason: Hypoglycemia Protocol Stop: 09/26/19 04:30 Montelukast Sodium (Singulair) 10 mg PO HS [facility] Stop: 09/26/19 20:59 Morphine Sulfate (Morphine Sulfate) 2 mg IV Q4H PRN PRN Reason: Pain Stop: 09/10/19 04:41 Nitroglycerin (Nitrostat) 0.4 mg SL UD PRN PRN Reason: Chest Pain Stop: 09/26/19 04:30 Pantoprazole Sodium (Protonix) 40 mg PO DAILY [facility] Stop: 09/26/19 08:59 Last Admin: 08/27/19 08:42 Dose: 40 mg Documented by: Potassium Chloride (Klor-Con M20) 20 meq PO BID [facility] Stop: 09/26/19 08:59 Last Admin: 08/27/19 08:42 Dose: 20 meq Documented by: Rosuvastatin Calcium (Crestor) 10 mg PO DAILY [facility] Stop: 09/26/19 08:59 Last Admin: 08/27/19 08:42 Dose: 10 mg Documented by: Sertraline HCl (Zoloft) 50 mg PO DAILY [facility] Stop: 09/26/19 08:59 Last Admin: 08/27/19 08:42 Dose: 50 mg Documented by: Theophylline (Theophylline Er) 400 mg PO DAILY [facility] Stop: 09/26/19 08:59 Last Admin: 08/27/19 08:42 Dose: 400 mg Documented by: Tramadol HCl (Ultram) 25 mg PO Q4H PRN PRN Reason: Pain Stop: 09/26/19 04:30 Umeclidinium [place] (Incruse Ellipta) 1 puffs INH DAILY [facility] Stop: 09/26/19 08:59 Last Admin: 08/27/19 08:43 Dose: 1 puffs Documented by: (1) Chest pain Chest pain type: unspecified Qualified Code(s): R07.9 - Chest pain, unspecified
[2019-08-27] MEDS: INSULIN ASPART 100 UNITS/ML 3 ML PEN SC SCH ×3 (11:32→22:11)
--- NOTE | 2019-08-27 13:25 | Electrocardiogram Report ---
Test Reason : Blood Pressure : / mmHG Vent. Rate : 068 BPM Atrial Rate : 041 BPM P-R Int : 000 ms QRS Dur : 178 ms QT Int : 464 ms P-R-T Axes : 000 032 044 degrees QTc Int : 493 ms AV sequential or dual chamber electronic pacemaker Abnormal ECG No previous ECGs available Confirmed by José Miguel Enciso ([id number]) on 08/27/2019 1:25:03 PM Referred By: Kerline Oneill Confirmed By:José Miguel Enciso
--- NOTE | 2019-08-27 15:23 | Hospitalist Progress Note ---
Date of Service August 27, 2019 Assessment & Plan (1) Chest pain: Paroxysmal atrial fibrillation Anticoagulated by coumadin therapy Presence of pacemaker history of coronary artery disease Hypertsenion -history of CABG in 1984, mid LAD, SVG to diagonal. 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 Patient states the chest pain originally started earlier this evening after dinner. Patient states chest pain began to slowly radiate up towards his neck and left jaw -admitting physician was concerned that patient at risk of acute coronary syndrome based on patient's cardiac history. His troponins were under the reference of normal. INR is 2.2 from patient's home dose coumadin and patient already systemically anticoagulated -cardiology Dr. Powell evaluating the patient on 08/27/2019. Echocardiogram performed on 08/27/2019 with moderately sized anteroseptal wall motion with dyskinesis of the segments. Left ventricular ejection fraction between 50 to 55% -this is in comparison to previous studies "-Nuclear stress test performed in [place] in August, revealed evidence of an apical and septal scar, LVEF at the lower limit of normal. Echocardiogram performed [facility] 12/25/2018: Moderate sized septal wall motion abnormality LVEF 53%, moderate left atrial argument, mild mitral regurgitation mild tricuspid regurgitation, estimated pulmonary systolic pressure mildly elevated 39 mmHg." -Patient denies chest pain since midnight. He has been generally comfortable today. on room air. no shortness of breath. advised patient continue to be monitor on telemetry overnight and if any new symptoms that he should inform the nurse immediately -continue home dose losartan 25 mg daily for blood pressure, continue metoprolol succinate 25 mg daily for heart rate control, continue statin as rosuvastatin 10 mg daily -awaiting full cardiology recommendations but at this time, hospitalist would not make major changes to patient's cardiac medications given generally comparable echo findings to previous written reports of cardiac studies. await cardiology on furosemide dosing (he takes 80 mg BID at home) chronic respiratory failure secondary to COPD on home O2 -pulmonary status appears to be at baseline -on Spiriva inhaler and theophylline at [facility], continue trigeminal neuralgia -no acute facial pain at this time -on carbamazepine as outpatient -carbamazepine level is 12.1 mcg/ml in context to reference ranges of 4mcg/ml to 12mcg/ml. will resume carbamazepine as reduced dose of 400 mg q12 hours for now DM 2 diet-controlled -well-controlled as of recent outpatient hemoglobin A1c of 5.08 January 2019 Chronic anemia -hemoglobin at baseline Admission and Anticipated Discharge Date Admission Date: August 27, 2019 Subjective Patient denies chest pain since midnight. He has been generally comfortable today. on room air. no shortness of breath. no palpitations. no dizziness. no headache. advised that patient continue to be monitor on telemetry overnight and if any new symptoms that he should inform the nurse immediately Review of Systems Review of Systems: All systems reviewed & are unremarkable except as noted in Subjective Physical Exam Constitutional: WD/WN, vitals as above Eyes: PERRL, conjunctivae normal, anicteric sclerae EOM intact bilaterally ENMT: external ear and nose normal, oropharynx normal Neck: trachea midline, no thyromegaly normal visual inspection Respiratory: normal respiratory effort, lungs clear to auscultation Cardiovascular: Rate/Rhythm: + bradycardic Gastrointestinal (Abdomen): normal bowel sounds, soft, nontender, no hepatosplenomegaly Musculoskeletal: Head/Neck/Chest: normocephalic and head atraumatic Neurologic: PERRL, EOMI, accommodation nl, no face palsy, no dysarthria CN's II-XI intact bilaterally Psychiatric: A+Ox3, euthymic affect Results & Data Results & Data ([facility]) Vital Signs (Past 12 Hours) Vital Signs Temp Pulse Resp BP BP Pulse Ox 08/27/19 11:21 63 16 94 08/27/19 07:59 36.5 C 63 22 116/69 94 08/27/19 06:58 66 16 94 08/27/19 04:14 36.5 C 68 16 112/66 97 08/27/19 03:34 36.9 C 61 17 149/77 H 94 (1) Chest pain Chest pain type: unspecified Qualified Code(s): R07.9 - Chest pain, unspec ified
[2019-08-27] MEDS ORDERED: WARFARIN SOD 2.5 MG TAB PO SCH (16:00)
[2019-08-27] MEDS: carBAMazepine 200 MG TABLET PO SCH (20:59)
[2019-08-27] MEDS: MONTELUKAST SODIUM 10 MG TABLET PO SCH (21:00)
[2019-08-28] MEDS: ALBUT/IPRATROP 3MG/0.5MG NEB 3 ML VIAL NEB SCH ×4 (06:51→19:11)
[2019-08-28 07:30] LABS: INR 1.9 (0.9-1.1); Prothrombin Time 19.1 Seconds (9.0-12.0)
[2019-08-28] MEDS: INSULIN ASPART 100 UNITS/ML 3 ML PEN SC SCH ×4 (07:48→22:46)
[2019-08-28 07:55] LABS: BUN Creatinine Ratio 13.3 (10-20); Calcium 8.3 mg/dl (8.5-10.1); Est GFR (African American) 78.1; Est GFR (Non-African American) 67.4; Potassium 3.8 mmol/L (3.5-5.1)
[2019-08-28] MEDS: DOCUSATE SODIUM 100 MG CAP PO SCH (08:47)
[2019-08-28] MEDS: LORazepam 0.5 MG TAB PO SCH ×2 (08:49→20:20)
[2019-08-28] MEDS: carBAMazepine 200 MG TABLET PO SCH ×2 (08:50→20:15)
[2019-08-28] MEDS: LOSARTAN POTASSIUM 25 MG TAB PO SCH (08:50)
[2019-08-28] MEDS: POTASSIUM CHLORIDE 20 MEQ TABCR PO SCH ×2 (08:50→20:14)
[2019-08-28] MEDS: UMECLIDINIUM BROMIDE 62.5MCG/BLISTER 7 PUFFS/INHALER INH SCH (08:51)
[2019-08-28] MEDS: ROSUVASTATIN CALCIUM 10 MG TAB PO SCH (08:51)
[2019-08-28] MEDS: LORATADINE 10 MG TAB PO SCH (08:51)
[2019-08-28] MEDS: SERTRALINE HCL 50 MG TABLET PO SCH (08:51)
[2019-08-28] MEDS: METOPROLOL SUCC 25MG EXT REL TAB PO SCH (08:52)
[2019-08-28] MEDS: PANTOprazole 40 MG TAB PO SCH (08:52)
[2019-08-28] MEDS: THEOPHYLLINE 400 MG EXTENDED REL TAB PO SCH (08:52)
--- NOTE | 2019-08-28 09:43 | Cardiology Progress Note ---
Date of Service August 28, 2019 Assessment & Plan (1) Chest pain: Patient feeling improved, with no exertional or postprandial discomfort. He has a history of known heart disease, CABG mostly in 1984, and a remote anteroseptal [place]. Echocardiogram findings are stable. INR is 1.9 and will therefore increase his Coumadin dose from 2.5 mg daily to 5 mg daily. Per review of his recent outpatient dosing, he alternates between 2.5 and 5 mg as an outpatient. Does not look like he was on aspirin on admission. At this back, given his history of coronary heart disease, aspirin is recommended unless we have evidence of bleeding concerns. Recommend increasing his activity as tolerated, and if he remains free of recurrent chest pain, can be transferred back to [facility] within the next 24 hrs. Subjective Chief complaint: Follow-up chest discomfort Subjective: Patient feeling well. Denies any exertional discomfort. He has been out of bed with minimal assistance, with no recurrent symptoms to suggest angina.Telemetry reveals AV sequential pacing in the range of 60-62 bpm. Physical Exam Physical Exam: Temp Pulse Resp BP Pulse Ox 36.4 C L 73 19 113/61 93 08/28/19 07:13 08/28/19 07:13 08/28/19 07:13 08/28/19 07:13 08/28/19 07:13 Constitutional: WD/WN, vitals as above Respiratory: normal respiratory effort, lungs clear to auscultation Cardiovascular: RRR, no murmur, no edema Gastrointestinal (Abdomen): normal bowel sounds, soft, nontender, no hepatosplenomegaly Neurologic: patellar DTR's 2+ bilat, sensation intact Results & Data Vital Signs (Past 12 Hours) Vital Signs Temp Pulse Resp BP BP Pulse Ox 08/28/19 07:13 36.4 C L 73 19 113/61 93 08/28/19 06:51 60 18 91 08/28/19 04:47 36.6 C 97 H 18 112/64 97 08/27/19 23:00 36.8 C 65 19 118/65 93 Laboratory Results Coagulation 08/28/19 Range/Units 07:06 PT 19.1 H (9.0-12.0) Seconds Comprehensive Metabolic Panel 08/28/19 Range/Units 07:06 Sodium 138 (136-145) mmol/L Potassium 3.8 (3.5-5.1) mmol/L Chloride 107 (98-107) mmol/L Carbon Dioxide 25 (21-32) mmol/L BUN 13 (7-18) mg/dl Creatinine 1.00 (0.6-1.4) mg/dl Glucose 90 (70-99) mg/dl Calcium 8.3 L (8.5-10.1) mg/dl Intake and Output 08/27/19 08/28/19 08/28/19 22:59 06:59 14:59 Intake Total 700 / 2946.167 200 / 2946.167 Output Total 500 / 1400 400 / 1400 Balance 200 / 1546.167 -200 / 1546.167 Intake: Oral 700 / 1680 200 / 1680 Output: Urine 500 / 1400 400 / 1400 Other: Weight 78.1 kg (1) Chest pain Chest pain type: unspecified Qualified Code(s): R07.9 - Chest pain, unspecif ied
[2019-08-28] MEDS: ASPIRIN 81 MG ECTAB PO SCH ×2 (11:46→11:56)
--- NOTE | 2019-08-28 15:41 | Hospitalist Progress Note ---
Date of Service August 28, 2019 Assessment & Plan (1) Chest pain: Paroxysmal atrial fibrillation Anticoagulated by coumadin therapy Presence of pacemaker history of coronary artery disease Hypertsenion -history of CABG in 1984, mid LAD, SVG to diagonal. 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 Patient states the chest pain originally started earlier this evening after dinner. Patient states chest pain began to slowly radiate up towards his neck and left jaw -admitting physician was concerned that patient at risk of acute coronary syndrome based on patient's cardiac history. His troponins were under the reference of normal. INR is 2.2 from patient's home dose coumadin and patient already systemically anticoagulated -cardiology Dr. Powell evaluating the patient on 08/27/2019. Echocardiogram performed on 08/27/2019 with moderately sized anteroseptal wall motion with dyskinesis of the segments. Left ventricular ejection fraction between 50 to 55% -this is in comparison to previous studies "-Nuclear stress test performed in [place] in August, revealed evidence of an apical and septal scar, LVEF at the lower limit of normal. Echocardiogram performed [facility] 12/25/2018: Moderate sized septal wall motion abnormality LVEF 53%, moderate left atrial argument, mild mitral regurgitation mild tricuspid regurgitation, estimated pulmonary systolic pressure mildly elevated 39 mmHg." -Patient denies chest pain since midnight. He has been generally comfortable today. on room air. no shortness of breath. advised patient continue to be monitor on telemetry overnight and if any new symptoms that he should inform the nurse immediately -continue home dose losartan 25 mg daily for blood pressure, continue metoprolol succinate 25 mg daily for heart rate control, continue statin as rosuvastatin 10 mg daily -08/28/2019: cardiology increased the coumadin and added aspirin and recommended further monitoring inpatient on telemetry. patient upgraded to full admission. hospitalist resuming home dose furosemide 80 mg BID starting evening of 08/28/2019 await cardiology on furosemide dosing (he takes 80 mg BID at home) chronic respiratory failure secondary to COPD on home O2 -pulmonary status appears to be at baseline -on Spiriva inhaler and theophylline at half-way, continue trigeminal neuralgia -no acute facial pain at this time -on carbamazepine as outpatient -carbamazepine level is 12.1 mcg/ml in context to reference ranges of 4mcg/ml to 12mcg/ml. continue carbamazepine as reduced dose of 400 mg q12 hours for now DM 2 diet-controlled -well-controlled as of recent outpatient hemoglobin A1c of 5.08 January 2019 Chronic anemia -hemoglobin at baseline Admission and Anticipated Discharge Date Admission Date: August 27, 2019 Subjective No overnight telemetry events. no acute chest pain complaints so far. breathing on room air. no abdomen pain. no vomiting. no dizziness. no headache. Review of Systems Review of Systems: All systems reviewed & are unremarkable except as noted in Subjective Physical Exam Constitutional: WD/WN, vitals as above Eyes: PERRL, conjunctivae normal, anicteric sclerae EOM intact bilaterally ENMT: external ear and nose normal, oropharynx normal Neck: trachea midline, no thyromegaly normal visual inspection Respiratory: normal respiratory effort, lungs clear to auscultation Cardiovascular: Rate/Rhythm: + bradycardic Gastrointestinal (Abdomen): normal bowel sounds, soft, nontender, no hepatosplenomegaly Musculoskeletal: Head/Neck/Chest: normocephalic and head atraumatic Neurologic: PERRL, EOMI, accommodation nl, no face palsy, no dysarthria CN's II-XI intact bilaterally Psychiatric: A+Ox3, euthymic affect Results & Data Results & Data ([facility]) Vital Signs (Past 12 Hours) Vital Signs Temp Pulse Pulse Resp BP Pulse Ox 08/28/19 15:05 60 18 96 08/28/19 11:14 60 18 91 08/28/19 11:00 36.5 C 72 19 119/71 94 08/28/19 07:13 36.4 C L 73 19 113/61 93 08/28/19 07:00 60 08/28/19 06:51 60 18 91 08/28/19 04:47 36.6 C 97 H 18 112/64 97 (1) Chest pain Chest pain type: unspecified Qualified Code(s): R07.9 - Chest pain, unspecified
[2019-08-28] MEDS: WARFARIN SOD 5 MG TAB PO SCH (16:32)
[2019-08-28] MEDS: FUROSEMIDE 80 MG TAB PO SCH (19:32)
[2019-08-28] MEDS: MONTELUKAST SODIUM 10 MG TABLET PO SCH (20:14)
--- NOTE | 2019-08-28 21:34 | Electrocardiogram Report ---
Test Reason : Blood Pressure : / mmHG Vent. Rate : 063 BPM Atrial Rate : 063 BPM P-R Int : 240 ms QRS Dur : 178 ms QT Int : 488 ms P-R-T Axes : 000 -01 068 degrees QTc Int : 499 ms Ventricular-paced rhythm Abnormal ECG When compared with ECG of 26-AUG-2019 23:30, Vent. rate has decreased BY 5 BPM Confirmed by Daniel Monique ([id number]) on 08/28/2019 9:34:06 PM Referred By: Kerline Silvaalize Confirmed By:Daniel Monique
[2019-08-29 06:46] LABS: INR 1.8 (0.9-1.1); Prothrombin Time 18.2 Seconds (9.0-12.0)
[2019-08-29] MEDS: ALBUT/IPRATROP 3MG/0.5MG NEB 3 ML VIAL NEB SCH ×4 (07:16→19:39)
[2019-08-29] MEDS: LORazepam 0.5 MG TAB PO SCH ×2 (08:23→20:49)
[2019-08-29] MEDS: LOSARTAN POTASSIUM 25 MG TAB PO SCH (08:24)
[2019-08-29] MEDS: LORATADINE 10 MG TAB PO SCH (08:24)
[2019-08-29] MEDS: ASPIRIN 81 MG ECTAB PO SCH (08:24)
[2019-08-29] MEDS: carBAMazepine 200 MG TABLET PO SCH ×2 (08:24→20:43)
[2019-08-29] MEDS: THEOPHYLLINE 400 MG EXTENDED REL TAB PO SCH (08:25)
[2019-08-29] MEDS: SERTRALINE HCL 50 MG TABLET PO SCH (08:25)
[2019-08-29] MEDS: METOPROLOL SUCC 25MG EXT REL TAB PO SCH (08:25)
[2019-08-29] MEDS: PANTOprazole 40 MG TAB PO SCH (08:25)
[2019-08-29] MEDS: DOCUSATE SODIUM 100 MG CAP PO SCH (08:25)
[2019-08-29] MEDS: ROSUVASTATIN CALCIUM 10 MG TAB PO SCH (08:26)
[2019-08-29] MEDS: FUROSEMIDE 80 MG TAB PO SCH ×2 (08:26→16:04)
[2019-08-29] MEDS: POTASSIUM CHLORIDE 20 MEQ TABCR PO SCH ×2 (08:26→20:42)
[2019-08-29] MEDS: UMECLIDINIUM BROMIDE 62.5MCG/BLISTER 7 PUFFS/INHALER INH SCH (08:27)
[2019-08-29 08:29] LABS: Albumin Level 2.3 gm/dl (3.4-5.0); BUN Creatinine Ratio 13.2 (10-20); Calcium 8.3 mg/dl (8.5-10.1); Creatinine Clr Calc Pharmacy 52.6 ml/min; Est GFR (Non-African American) 68.2; Magnesium 2.2 mg/dl (1.8-2.4); Potassium 3.6 mmol/L (3.5-5.1)
[2019-08-29 08:32] LABS: Albumin Globulin Ratio 0.7 (0.9-2); Bilirubin,Total 0.3 mg/dl (0.2-1); Globulin 3.4 gm/dl (2.5-4.0); Phosphorus 3.2 mg/dl (2.5-4.9); Total Protein 5.7 gm/dl (6.4-8.2)
[2019-08-29] MEDS: INSULIN ASPART 100 UNITS/ML 3 ML PEN SC SCH ×4 (08:56→20:42)
--- NOTE | 2019-08-29 09:36 | Cardiology Progress Note ---
Date of Service August 29, 2019 Assessment & Plan (1) Chest pain: -No recurrence of chest discomfort. Stable echocardiogram findings. Continue conservative medical therapy, no changes compared to preoperative medications. Recent DVT, is on Coumadin. INR is trended down to 1.8.Coumadin increased to 5 mg daily yesterday, typically dose alternates between 2.5 and 5 mg. Stable from my standpoint for tx back to [facility]. Subjective Chief complaint: Follow-up chest pain Subjective: Patient feeling well. He enjoyed his Austrian toast breakfast this morning. Telemetry reveals sinus rhythm with AV sequential pacing in the 60s. Physical Exam Physical Exam: Temp Pulse Resp BP Pulse Ox 36.8 C 63 19 109/56 L 96 08/29/19 08:01 08/29/19 08:01 08/29/19 08:01 08/29/19 08:01 08/29/19 08:01 Constitutional: No acute distress, frail in appearance Cardiovascular: RRR, no murmur, no edema Gastrointestinal (Abdomen): normal bowel sounds, soft, nontender, no hepatosplenomegaly Neurologic: PERRL, EOMI, accommodation nl, no face palsy, no dysarthria Results & Data Vital Signs (Past 12 Hours) Vital Signs Temp Pulse Pulse Resp BP Pulse Ox 08/29/19 08:01 36.8 C 63 19 109/56 L 96 08/29/19 07:16 70 18 93 08/29/19 04:47 36.8 C 62 18 105/51 L 93 08/29/19 00:03 36.6 C 64 18 109/65 94 08/28/19 23:17 36.4 C L 91 H 19 128/71 93 08/28/19 23:00 60 Laboratory Results Cardiac Enzymes 08/29/19 Range/Units 06:05 AST 11 L (15-37) U/L Coagulation 08/29/19 Range/Units 06:06 PT 18.2 H (9.0-12.0) Seconds Comprehensive Metabolic Panel 08/29/19 Range/Units 06:05 Sodium 140 (136-145) mmol/L Potassium 3.6 (3.5-5.1) mmol/L Chloride 109 H (98-107) mmol/L Carbon Dioxide 24 (21-32) mmol/L BUN 13 (7-18) mg/dl Creatinine 0.99 (0.6-1.4) mg/dl Glucose 91 (70-99) mg/dl Calcium 8.3 L (8.5-10.1) mg/dl AST 11 L (15-37) U/L ALT 10 L (12-78) U/L Alkaline Phosphatase 123 H (45-117) U/L Total Protein 5.7 L (6.4-8.2) gm/dl Albumin 2.3 L (3.4-5.0) gm/dl Intake and Output 08/28/19 08/29/19 08/29/19 22:59 06:59 14:59 Intake Total 90 / 730 100 / 730 Output Total 200 / 1075 675 / 1075 Balance -110 / -345 -575 / -345 Intake: Oral 90 / 730 100 / 730 Output: Urine 200 / 1075 675 / 1075 Other: Weight 78.6 kg (1) Chest pain Chest pain type: unspecified Qualified Code(s): R07.9 - Chest pain, unspecified
--- NOTE | 2019-08-29 10:05 | Hospitalist Progress Note ---
Date of Service August 29, 2019 Assessment & Plan (1) Chest pain: Chest pain, possible from Angina Pectoris (acute coronary syndrome ruled out) Paroxysmal atrial fibrillation Anticoagulated by coumadin therapy Presence of pacemaker Hypertension history of coronary artery disease -history of CABG in 1984, mid LAD, SVG to diagonal. 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 Patient states the chest pain originally started earlier this evening after dinner. Patient states chest pain began to slowly radiate up towards his neck and left jaw -admitting physician was concerned that patient at risk of acute coronary syndrome based on patient's cardiac history. His troponins were under the reference of normal. INR is 2.2 from patient's home dose coumadin and patient already systemically anticoagulated -cardiology Dr. Powell evaluating the patient on 08/27/2019. Echocardiogram performed on 08/27/2019 with moderately sized anteroseptal wall motion with dyskinesis of the segments. Left ventricular ejection fraction between 50 to 55% -this is in comparison to previous studies "-Nuclear stress test performed in [place] in August, revealed evidence of an apical and septal scar, LVEF at the lower limit of normal. Echocardiogram performed [facility] 12/25/2018: Moderate sized septal wall motion abnormality LVEF 53%, moderate left atrial argument, mild mitral regurgitation mild tricuspid regurgitation, estimated pulmonary systolic pressure mildly elevated 39 mmHg." -Patient denies chest pain since midnight. He has been generally comfortable today. on room air. no shortness of breath. advised patient continue to be monitor on telemetry overnight and if any new symptoms that he should inform the nurse immediately -continue home dose losartan 25 mg daily for blood pressure, continue metoprolol succinate 25 mg daily for heart rate control, continue statin as rosuvastatin 10 mg daily -08/28/2019: cardiology increased the coumadin and added aspirin and recommended further monitoring inpatient on telemetry. patient upgraded to full admission. hospitalist resuming home dose furosemide 80 mg BID starting evening of 08/28/2019 -08/29/2019: no chest pain today. no symptoms. cardiology Dr. Powell suspected that patient had episode of chest pain from possible Angina pectoris and that patient can be discharged to [facility] (discharge to [facility] discharge medication sent electronically to [facility] [place] [id number] as aspirin 81 mg daily, rosuvastatin 10 mg daily, warfarin 5 mg daily, carbamazipine 400 mg every 12 hours Patient should have INR recheck in 3 to 6 days from hospital discharge, and carbamazepine level for history of trigeminal neuralgia checked by primary care doctor visit 09/08/2019 1:00 PM Provider Teofilo Eason PA-C Department Family Practice, [place] 09/15/2019 4:15 PM Provider Vijay Montanez MD Department Ophthalmology, [place] 09/22/2019 11:00 AM Provider Jerry Echols PA-C Department Cardiology [facility] 10/08/2019 3:30 PM Provider Jerry Echols PA-C Department Cardiology [facility] 10/16/2019 8:00 AM Provider Gloria Barr [place] Department Cardiology [facility]) chronic respiratory failure secondary to COPD on home O2 -pulmonary status appears to be at baseline -on Spiriva inhaler and theophylline at long-term, continue trigeminal neuralgia -no acute facial pain at this time -on carbamazepine as outpatient -carbamazepine level is 12.1 mcg/ml in context to reference ranges of 4mcg/ml to 12mcg/ml. continue carbamazepine as reduced dose of 400 mg q12 hours for now DM 2 diet-controlled -well-controlled as of recent outpatient hemoglobin A1c of 5.08 January 2019 Chronic anemia -hemoglobin at baseline Admission and Anticipated Discharge Date Admission Date: August 28, 2019 Subjective no chest pain. no acute distress. no shortness of breath. no palpitations. no dizziness. no headache. no vomiting Review of Systems Review of Systems: All systems reviewed & are unremarkable except as noted in Subjective Physical Exam Constitutional: WD/WN, vitals as above Eyes: PERRL, conjunctivae normal, anicteric sclerae EOM intact bilaterally ENMT: external ear and nose normal, oropharynx normal Neck: trachea midline, no thyromegaly normal visual inspection Respiratory: normal respiratory effort, lungs clear to auscultation Cardiovascular: Rate/Rhythm: + bradycardic Gastrointestinal (Abdomen): normal bowel sounds, soft, nontender, no hepatosplenomegaly Musculoskeletal: Head/Neck/Chest: normocephalic and head atraumatic Neurologic: PERRL, EOMI, accommodation nl, no face palsy, no dysarthria CN's II-XI intact bilaterally Psychiatric: A+Ox3, euthymic affect Results & Data Results & Data ([facility]) Vital Signs (Past 12 Hours) Vital Signs Temp Pulse Pulse Resp BP Pulse Ox 08/29/19 08:01 36.8 C 63 19 109/56 L 96 08/29/19 07:16 70 18 93 08/29/19 04:47 36.8 C 62 18 105/51 L 93 08/29/19 00:03 36.6 C 64 18 109/65 94 08/28/19 23:17 36.4 C L 91 H 19 128/71 93 08/28/19 23:00 60 (1) Chest pain Chest pain type: unspecified Qualified Code(s): R07.9 - Chest pain, unspecified
--- NOTE | 2019-08-29 10:10 | Discharge Summary ---
Date of Service August 29, 2019 Admission HPI Per Admitting Provider History obtained from patient and records. 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 Patient confined at [facility] last month for recurrent DVT left lower extremity. INR at that time was noted to be subtherapeutic. Possible medication noncompliance, deconditioning as per records. Patient transferred to [facility] for placement. Last night around dinnertime, patient noted achy left chest pain going to his neck and left jaw similar to heart attacks in the past. No shortness of breath, no diaphoresis. No new cough/flulike symptoms. Relief with aspirin and nitroglycerin administered by EMS. Patient brought to the ER for evaluation. Nitropaste placed at the ER. 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 Principal Diagnosis Chest pain, possible from Angina Pectoris (acute coronary syndrome ruled out) Paroxysmal atrial fibrillation Anticoagulated by coumadin therapy Presence of pacemaker Hypertension history of coronary artery disease Discharge Exam Constitutional WD/WN, vitals as above Eyes PERRL, conjunctivae normal, anicteric sclerae EOM intact bilaterally ENMT external ear and nose normal, oropharynx normal Neck trachea midline, no thyromegaly normal visual inspection Respiratory normal respiratory effort, lungs clear to auscultation Cardiovascular Rate/Rhythm: + bradycardic Gastrointestinal (Abdomen) normal bowel sounds, soft, nontender, no hepatosplenomegaly Musculoskeletal Head/Neck/Chest: normocephalic and head atraumatic Neurologic PERRL, EOMI, accommodation nl, no face palsy, no dysarthria CN's II-XI intact bilaterally Psychiatric A+Ox3, euthymic affect Discharge Data Allergies Allergy/AdvReac Type Severity Reaction Status Date / Time dalteparin,porcine Allergy Unknown Verified 08/27/19 00:17 enalapril Allergy Unknown Verified 08/27/19 00:17 erythromycin base Allergy Unknown Verified 08/27/19 00:17 lidocaine Allergy Unknown Verified 08/27/19 00:17 Penicillins Allergy Unknown Verified 08/27/19 00:17 propofol Allergy Unknown Verified 08/27/19 00:17 simvastatin [From Zocor] Allergy Unknown Verified 08/27/19 00:17 tinzaparin,porcine Allergy Unknown Verified 08/27/19 00:17 anesthesia [id number] Allergy Unknown Uncoded 08/27/19 00:17 LWM Heparin Allergy Unknown Uncoded 08/27/19 00:17 porcine extract skin test Allergy Unknown Uncoded 08/27/19 00:17 Consultations 08/27/19 01:14 ED Decision to Admit Stat 08/27/19 04:31 Consult Cardiology Routine Hospital Course (1) Chest pain: Chest pain, possible from Angina Pectoris (acute coronary syndrome ruled out) Paroxysmal atrial fibrillation Anticoagulated by coumadin therapy Presence of pacemaker Hypertension history of coronary artery disease -history of CABG in 1984, mid LAD, SVG to diagonal. 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 Patient states the chest pain originally started earlier this evening after dinner. Patient states chest pain began to slowly radiate up towards his neck and left jaw -admitting physician was concerned that patient at risk of acute coronary syndrome based on patient's cardiac history. His troponins were under the reference of normal. INR is 2.2 from patient's home dose coumadin and patient already systemically anticoagulated -cardiology Dr. Powell evaluating the patient on 08/27/2019. Echocardiogram performed on 08/27/2019 with moderately sized anteroseptal wall motion with dyskinesis of the segments. Left ventricular ejection fraction between 50 to 55% -this is in comparison to previous studies "-Nuclear stress test performed in [place] in August, revealed evidence of an apical and septal scar, LVEF at the lower limit of normal. Echocardiogram performed [facility] 12/25/2018: Moderate sized septal wall motion abnormality LVEF 53%, moderate left atrial argument, mild mitral regurgitation mild tricuspid regurgitation, estimated pulmonary systolic pressure mildly elevated 39 mmHg." -Patient denies chest pain since midnight. He has been generally comfortable today. on room air. no shortness of breath. advised patient continue to be monitor on telemetry overnight and if any new symptoms that he should inform the nurse immediately -continue home dose losartan 25 mg daily for blood pressure, continue metoprolol succinate 25 mg daily for heart rate control, continue statin as rosuvastatin 10 mg daily -08/28/2019: cardiology increased the coumadin and added aspirin and recommended further monitoring inpatient on telemetry. patient upgraded to full admission. hospitalist resuming home dose furosemide 80 mg BID starting evening of 08/28/2019 -08/29/2019: no chest pain today. no symptoms. cardiology Dr. Powell suspected that patient had episode of chest pain from possible Angina pectoris and that patient can be discharged to [facility] (discharge to [facility] discharge [place] [address] as aspirin 81 mg daily, rosuvastatin 10 mg daily, warfarin 5 mg daily, carbamazipine 400 mg every 12 hours Patient should have INR recheck in 3 to 6 days from hospital discharge, and carbamazepine level for history of trigeminal neuralgia checked by primary care doctor visit 09/08/2019 1:00 PM Provider Teofilo Eason PA-C Department [facility] 09/15/2019 4:15 PM Provider Vijay Montanez [facility] 09/22/2019 11:00 AM Provider Jerry Echols PA-C Department Cardiology [facility] 10/08/2019 3:30 PM Provider Jerry Echols PA-C Department Cardiology [facility] 10/16/2019 8:00 AM Provider [facility] Department Cardiology [facility]) chronic respiratory failure secondary to COPD on home O2 -pulmonary status appears to be at baseline -on Spiriva inhaler and theophylline at custodial, continue trigeminal neuralgia -no acute facial pain at this time -on carbamazepine as outpatient -carbamazepine level is 12.1 mcg/ml in context to reference ranges of 4mcg/ml to 12mcg/ml. continue carbamazepine as reduced dose of 400 mg q12 hours for now DM 2 diet-controlled -well-controlled as of recent outpatient hemoglobin A1c of 5.08 January 2019 Chronic anemia -hemoglobin at baseline Total Time Total Time Spent Total Time Spent (In Minutes): 40 minutes Total Time Includes: Examination of the Patient, Discharge Planning, Medication Reconciliation and Communication With Other Providers Discharge Plan Discharge Items Patient Disposition: Transfer [facility] Reason For Visit: [facility] Discharge Diagnosis: Chest pain, possible from Angina Pectoris (acute coronary syndrome ruled out) Paroxysmal atrial fibrillation Anticoagulated by coumadin therapy Presence of pacemaker Hypertension history of coronary artery disease Condition on Discharge: Good Activity: Resume your previous activity Non-emergency contact: Primary Care Provider and Plush Finisher Call non-emergency contact if: you have any medication questions Follow-up/Referrals: Kerline Oneill [Primary Care Provider] - Diet: Heart Healthy Addtl Attending Provider Instructions: discharge to [facility] discharge [place] [address] as aspirin 81 mg daily, rosuvastatin 10 mg daily, warfarin 5 mg daily, carbamazipine 400 mg every 12 hours Patient should have INR recheck in 3 to 6 days from hospital discharge, and carbamazepine level for history of trigeminal neuralgia checked by primary care doctor visit 09/08/2019 1:00 PM Provider Teofilo Eason PA-C [facility] [place] 09/15/2019 4:15 PM Provider Vijay Montanez MD [facility] 09/22/2019 11:00 AM Provider Jerry Echols PA-C Department Cardiology [facility] 10/08/2019 3:30 PM Provider Jerry Echols PA-C [facility] 10/16/2019 8:00 AM Provider Roydaisy [facility] Department Cardiology [facility] Pending Studies at Discharge: No Stand-Alone Forms: My [facility] Skilled Items Patient informed of condition?: Yes DNR: No Discharge Level of Care: Other Communicable Disease: No Discharge Prognosis: Stable Lines: None Urinary Catheter: No Medications and DC Order Prescriptions: New warfarin 5 mg Tablet 5 mg PO DAILY@1600 30 Days Qty: 30 RF: 0 aspirin 81 mg Tablet,Delayed Release (Dr/Ec) 81 mg PO QAM 30 Days Qty: 30 RF: 0 carbamazepine 200 mg Tablet 400 mg PO Q12H 30 Days Qty: 120 RF: 0 rosuvastatin [Crestor] 10 mg Tablet 10 mg PO DAILY 30 Days Qty: 30 RF: 0 Continued ondansetron HCl 4 mg tablet 4 mg PO Q6 PRN (Reason: Nausea And Vomiting) RF: 0 potassium chloride 20 mEq tablet,ER particles/crystals 40 meq PO BID RF: 0 docusate sodium [Colace] 100 mg Capsule 100 mg PO DAILY RF: 0 furosemide 40 mg tablet 80 mg PO BID RF: 0 ipratropium-albuterol 0.5 mg-3 mg(2.5 mg base)/3 mL solution for nebulization 3 ml INHALATION QID RF: 0 lorazepam 0.5 mg tablet 0.25 mg PO BID RF: 0 losartan 25 mg tablet 25 mg PO DAILY RF: 0 montelukast 10 mg tablet 10 mg PO DAILY RF: 0 metoprolol succinate 25 mg tablet extended release 24 hr 25 mg PO DAILY RF: 0 pantoprazole 40 mg tablet,delayed release (DR/EC) 40 mg PO DAILY RF: 0 sertraline 50 mg tablet 50 mg PO DAILY RF: 0 rosuvastatin 10 mg tablet 10 mg PO DAILY RF: 0 theophylline 400 mg tablet extended release 24 hr 400 mg PO DAILY RF: 0 Spiriva with HandiHaler 18 mcg capsule, w/inhalation device 1 cap INHALATION DAILY RF: 0 Discontinued warfarin 5 mg tablet 5 mg PO HS RF: 0 atorvastatin 10 mg tablet 10 mg PO DAILY RF: 0 carbamazepine 300 mg capsule, ER multiphase 12 hr 600 mg PO Q12 RF: 0 loratadine 10 mg tablet 10 mg PO DAILY RF: 0 Discharge Orders: Discharge Order (Routine); Ordered 08/29/19 Ordered By: Emerson Rojas Admission Data Admit Date/Time: 08/28/19 15:33 Attending Provider: Emerson Rojas Admit Provider: Eddi Chávez Primary Care Provider: Kerline Oneill Other Providers: Eddi Chávez ; Darrin Glass
--- NOTE | 2019-08-29 12:23 | Hospitalist Progress Note ---
Date of Service August 29, 2019 Assessment & Plan Admission and Anticipated Discharge Date Admission Date: August 28, 2019 Subjective as per showcase maker that [facility] "want insurance auth now too before he goes back. Also there is no transportation now. So unfortunately he can not go today" discharge order is cancelled Results & Data Results & Data ([facility]) Vital Signs (Past 12 Hours) Vital Signs Temp Pulse Pulse Resp BP BP Pulse Ox 08/29/19 11:48 37.0 C 76 18 115/63 95 08/29/19 11:38 71 16 93 08/29/19 10:17 36.8 C 63 19 109/56 L 118/65 96 08/29/19 08:01 36.8 C 63 19 109/56 L 96 08/29/19 07:16 70 18 93 08/29/19 06:45 64 08/29/19 04:47 36.8 C 62 18 105/51 L 93
[2019-08-29] MEDS: WARFARIN SOD 5 MG TAB PO SCH (16:04)
[2019-08-29] MEDS: MONTELUKAST SODIUM 10 MG TABLET PO SCH (20:43)
[2019-08-30] MEDS: ALBUT/IPRATROP 3MG/0.5MG NEB 3 ML VIAL NEB SCH (07:10)
--- NOTE | 2019-08-30 07:48 | Hospitalist Progress Note ---
Date of Service August 30, 2019 Assessment & Plan (1) Chest pain: Chest pain, possible from Angina Pectoris (acute coronary syndrome ruled out) Paroxysmal atrial fibrillation Anticoagulated by coumadin therapy Presence of pacemaker Hypertension history of coronary artery disease -history of CABG in 1984, mid LAD, SVG to diagonal. 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 Patient states the chest pain originally started earlier this evening after dinner. Patient states chest pain began to slowly radiate up towards his neck and left jaw -admitting physician was concerned that patient at risk of acute coronary syndrome based on patient's cardiac history. His troponins were under the reference of normal. INR is 2.2 from patient's home dose coumadin and patient already systemically anticoagulated -cardiology Dr. Powell evaluating the patient on 08/27/2019. Echocardiogram performed on 08/27/2019 with moderately sized anteroseptal wall motion with dyskinesis of the segments. Left ventricular ejection fraction between 50 to 55% -this is in comparison to previous studies "-Nuclear stress test performed in [place] in August, revealed evidence of an apical and septal scar, LVEF at the lower limit of normal. Echocardiogram performed [facility] 12/25/2018: Moderate sized septal wall motion abnormality LVEF 53%, moderate left atrial argument, mild mitral regurgitation mild tricuspid regurgitation, estimated pulmonary systolic pressure mildly elevated 39 mmHg." -Patient denies chest pain since midnight. He has been generally comfortable today. on room air. no shortness of breath. advised patient continue to be monitor on telemetry overnight and if any new symptoms that he should inform the nurse immediately -continue home dose losartan 25 mg daily for blood pressure, continue metoprolol succinate 25 mg daily for heart rate control, continue statin as rosuvastatin 10 mg daily -08/28/2019: cardiology increased the coumadin and added aspirin and recommended further monitoring inpatient on telemetry. patient upgraded to full admission. hospitalist resuming home dose furosemide 80 mg BID starting evening of 08/28/2019 -08/29/2019: no chest pain today. no symptoms. cardiology Dr. Powell suspected that patient had episode of chest pain from possible Angina pectoris and that patient can be discharged to [facility] -08/30/2019: Patient remained in hospital because on 08/29/2019 as per field case manager that [facility] "want insurance auth now too before he goes back. Also there is no transportation now. So unfortunately he can not go today". awaiting on field case manager to see when patient may be discharged to [facility]. when patient is discharge to [facility] these are the following directions: (discharge medication have been sent electronically to [facility] [place] [id number] as aspirin 81 mg daily, rosuvastatin 10 mg daily, warfarin 5 mg daily, carbamazipine 400 mg every 12 hours Patient should have INR recheck in 3 to 6 days from hospital discharge, and carbamazepine level for history of trigeminal neuralgia checked by primary care doctor visit 09/08/2019 1:00 PM Provider Teofilo Eason PA-C Department Family Practice, [place] 09/15/2019 4:15 PM Provider Vijay Montanez MD Department Ophthalmology, [place] 09/22/2019 11:00 AM Provider Jerry Echols PA-C Department Cardiology [facility] 10/08/2019 3:30 PM Provider Jerry Echols PA-C Department Cardiology [facility] 10/16/2019 8:00 AM Provider Gloria Barr [place] Department Cardiology [facility]) chronic respiratory failure secondary to COPD on home O2 -pulmonary status appears to be at baseline -on Spiriva inhaler and theophylline at longterm, continue trigeminal neuralgia -no acute facial pain at this time -on carbamazepine as outpatient -carbamazepine level is 12.1 mcg/ml in context to reference ranges of 4mcg/ml to 12mcg/ml. continue carbamazepine as reduced dose of 400 mg q12 hours for now DM 2 diet-controlled -well-controlled as of recent outpatient hemoglobin A1c of 5.08 January 2019 Chronic anemia -hemoglobin at baseline DVT prophylaxis: on coumadin 5 mg daily, check INR Admission and Anticipated Discharge Date Admission Date: August 28, 2019 Subjective Patient remained in hospital because on 08/29/2019 as per field case manager that [facility] "want insurance auth now too before he goes back. Also there is no transportation now. So unfortunately he can not go today" no acute events overnight. heart rates continued to be paced. breathing on room air. no shortness of breath. no dizziness. no headache. no problems with eating Review of Systems Review of Systems: All systems reviewed & are unremarkable except as noted in Subjective Physical Exam Constitutional: WD/WN, vitals as above Eyes: PERRL, conjunctivae normal, anicteric sclerae EOM intact bilaterally ENMT: external ear and nose normal, oropharynx normal Neck: trachea midline, no thyromegaly normal visual inspection Respiratory: normal respiratory effort, lungs clear to auscultation Cardiovascular: Rate/Rhythm: + bradycardic Gastrointestinal (Abdomen): normal bowel sounds, soft, nontender, no hepatosplenomegaly Musculoskeletal: Head/Neck/Chest: normocephalic and head atraumatic Neurologic: PERRL, EOMI, accommodation nl, no face palsy, no dysarthria CN's II-XI intact bilaterally Psychiatric: A+Ox3, euthymic affect Results & Data Results & Data ([facility]) Vital Signs (Past 12 Hours) Vital Signs Temp Pulse Pulse Resp BP BP Pulse Ox 08/30/19 07:10 62 17 93 08/30/19 04:33 36.7 C 62 20 123/67 93 08/30/19 00:11 36.5 C 62 20 132/64 94 08/30/19 00:00 63 08/29/19 20:03 70 08/29/19 19:58 36.6 C 64 19 109/63 94 (1) Chest pain Chest pain type: unspecified Qualified Code(s): R07.9 - Chest pain, unspecified
[2019-08-30] MEDS: INSULIN ASPART 100 UNITS/ML 3 ML PEN SC SCH ×4 (08:15→21:50)
[2019-08-30 08:31] LABS: Prothrombin Time 20.8 Seconds (9.0-12.0)
[2019-08-30] MEDS: UMECLIDINIUM BROMIDE 62.5MCG/BLISTER 7 PUFFS/INHALER INH SCH (08:32)
[2019-08-30] MEDS: LORazepam 0.5 MG TAB PO SCH ×2 (08:32→21:47)
[2019-08-30] MEDS: ASPIRIN 81 MG ECTAB PO SCH (08:33)
[2019-08-30] MEDS: PANTOprazole 40 MG TAB PO SCH (08:33)
[2019-08-30] MEDS: METOPROLOL SUCC 25MG EXT REL TAB PO SCH (08:33)
[2019-08-30] MEDS: DOCUSATE SODIUM 100 MG CAP PO SCH (08:33)
[2019-08-30] MEDS: THEOPHYLLINE 400 MG EXTENDED REL TAB PO SCH (08:33)
[2019-08-30] MEDS: SERTRALINE HCL 50 MG TABLET PO SCH (08:33)
[2019-08-30] MEDS: FUROSEMIDE 80 MG TAB PO SCH ×2 (08:34→16:12)
[2019-08-30] MEDS: LOSARTAN POTASSIUM 25 MG TAB PO SCH (08:34)
[2019-08-30] MEDS: LORATADINE 10 MG TAB PO SCH (08:34)
[2019-08-30] MEDS: POTASSIUM CHLORIDE 20 MEQ TABCR PO SCH ×2 (08:34→21:48)
[2019-08-30] MEDS: carBAMazepine 200 MG TABLET PO SCH ×2 (08:34→21:49)
[2019-08-30] MEDS: ROSUVASTATIN CALCIUM 10 MG TAB PO SCH (08:35)
[2019-08-30] MEDS: WARFARIN SOD 5 MG TAB PO SCH (16:12)
[2019-08-30] MEDS: MONTELUKAST SODIUM 10 MG TABLET PO SCH (21:48)
[2019-08-30] MEDS: ACETAMINOPHEN 325 MG TAB PO PRN (21:59)
[2019-08-31] MEDS: TRAMADOL HCL 50 MG TABLET PO PRN ×4 (02:03→17:58)
[2019-08-31 08:17] LABS: BUN Creatinine Ratio 14.1 (10-20); Calcium 8.3 mg/dl (8.5-10.1); Est GFR (African American) 85.2; Est GFR (Non-African American) 73.6
[2019-08-31] MEDS ORDERED: HYDROmorphone INJ 0.5 MG/0.5 ML SYR IV STA (08:24)
--- NOTE | 2019-08-31 08:24 | Hospitalist Progress Note ---
Date of Service August 31, 2019 Assessment & Plan (1) Chest pain: Chest pain, possible from Angina Pectoris (acute coronary syndrome ruled out) Paroxysmal atrial fibrillation Anticoagulated by coumadin therapy Presence of pacemaker Hypertension history of coronary artery disease -history of CABG in 1984, mid LAD, SVG to diagonal. 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 Patient states the chest pain originally started earlier this evening after dinner. Patient states chest pain began to slowly radiate up towards his neck and left jaw -admitting physician was concerned that patient at risk of acute coronary syndrome based on patient's cardiac history. His troponins were under the reference of normal. INR is 2.2 from patient's home dose coumadin and patient already systemically anticoagulated -cardiology Dr. Powell evaluating the patient on 08/27/2019. Echocardiogram performed on 08/27/2019 with moderately sized anteroseptal wall motion with dyskinesis of the segments. Left ventricular ejection fraction between 50 to 55% -this is in comparison to previous studies "-Nuclear stress test performed in [place] in August, revealed evidence of an apical and septal scar, LVEF at the lower limit of normal. Echocardiogram performed [facility] 12/25/2018: Moderate sized septal wall motion abnormality LVEF 53%, moderate left atrial argument, mild mitral regurgitation mild tricuspid regurgitation, estimated pulmonary systolic pressure mildly elevated 39 mmHg." -Patient denies chest pain since midnight. He has been generally comfortable today. on room air. no shortness of breath. advised patient continue to be monitor on telemetry overnight and if any new symptoms that he should inform the nurse immediately -continue home dose losartan 25 mg daily for blood pressure, continue metoprolol succinate 25 mg daily for heart rate control, continue statin as rosuvastatin 10 mg daily -08/28/2019: cardiology increased the coumadin and added aspirin and recommended further monitoring inpatient on telemetry. patient upgraded to full admission. hospitalist resuming home dose furosemide 80 mg BID starting evening of 08/28/2019 -08/29/2019: no chest pain today. no symptoms. cardiology Dr. Powell suspected that patient had episode of chest pain from possible Angina pectoris and that patient can be discharged to [facility] -08/30/2019: Patient remained in hospital because on 08/29/2019 as per patient case manager that [facility] "want insurance auth now too before he goes back. Also there is no transportation now. So unfortunately he can not go today". awaiting on patient case manager to see when patient may be discharged to [facility]. when patient is discharge to [facility] these are the following directions: (discharge medication have been sent electronically to [facility] [place] [id number] as aspirin 81 mg daily, rosuvastatin 10 mg daily, warfarin 5 mg daily, carbamazipine 400 mg every 12 hours Patient should have INR recheck in 3 to 6 days from hospital discharge, and carbamazepine level for history of trigeminal neuralgia checked by primary care doctor visit 09/08/2019 1:00 PM Provider Teofilo Eason PA-C Department Family Practice, [place] 09/15/2019 4:15 PM Provider Vijay Montanez MD Department Ophthalmology, [place] 09/22/2019 11:00 AM Provider Jerry Echols PA-C Department Cardiology [facility] 10/08/2019 3:30 PM Provider Jerry Echols PA-C Department Cardiology [facility] 10/16/2019 8:00 AM Provider [facility] [place] Department Cardiology [facility]) Right shoulder pain -right shoulder pain limiting passive and active range of motion. patient reported this pain started on 08/30/2019 while sitting up in the chair. he was given tramadol as per nurse at that time. patient in AM of 08/31/2019 continues to have right shoulder pain and not really allowing physician to lift up his right arm because of pain. -right shoulder X ray -prn pain medications, ice as needed to right shoulder chronic respiratory failure secondary to COPD -has home O2 -pulmonary status appears to be at baseline -on Spiriva inhaler and theophylline at [facility], continue -generally patient has been able to breathe comfortably on room air in the hospital and maintain the oxygen saturation trigeminal neuralgia -no acute facial pain at this time -on carbamazepine as outpatient -carbamazepine level is 12.1 mcg/ml in context to reference ranges of 4mcg/ml to 12mcg/ml. continue carbamazepine as reduced dose of 400 mg q12 hours for now DM 2 diet-controlled -well-controlled as of recent outpatient hemoglobin A1c of 5.08 January 2019 Chronic anemia -hemoglobin at baseline DVT prophylaxis: on coumadin 5 mg daily, check INR Admission and Anticipated Discharge Date Admission Date: August 28, 2019 Subjective right shoulder pain limiting passive and active range of motion. patient reported this pain started on 08/30/2019 while sitting up in the chair. he was given tramadol as per nurse at that time. patient in AM of 08/31/2019 continues to have right shoulder pain and not really allowing physician to lift up his right arm because of pain. no chest pain. on room air. no shortness of breath. no abdomen pain. no nausea. no dizziness. no headache Review of Systems Review of Systems: All systems reviewed & are unremarkable except as noted in Subjective Physical Exam Constitutional: WD/WN, vitals as above Eyes: PERRL, conjunctivae normal, anicteric sclerae EOM intact bilaterally ENMT: external ear and nose normal, oropharynx normal Neck: trachea midline, no thyromegaly normal visual inspection Respiratory: normal respiratory effort, lungs clear to auscultation Cardiovascular: Rate/Rhythm: + bradycardic Gastrointestinal (Abdomen): normal bowel sounds, soft, nontender, no hepatosplenomegaly Musculoskeletal: Head/Neck/Chest: normocephalic and head atraumatic right shoulder pain limiting passive and active range of motion Neurologic: PERRL, EOMI, accommodation nl, no face palsy, no dysarthria CN's II-XI intact bilaterally Psychiatric: A+Ox3, euthymic affect Results & Data Results & Data ([facility]) Vital Signs (Past 12 Hours) Vital Signs Temp Pulse Resp BP BP Pulse Ox 08/31/19 07:55 36.7 C 65 18 112/66 94 08/30/19 22:00 36.8 C 86 20 121/58 L 97 (1) Chest pain Chest pain type: unspecified Qualified Code(s): R07.9 - Chest pain, unspecified
[2019-08-31] MEDS: LORazepam 0.5 MG TAB PO SCH ×2 (08:32→21:15)
[2019-08-31] MEDS: THEOPHYLLINE 400 MG EXTENDED REL TAB PO SCH (08:32)
[2019-08-31] MEDS: ROSUVASTATIN CALCIUM 10 MG TAB PO SCH (08:32)
[2019-08-31] MEDS: LOSARTAN POTASSIUM 25 MG TAB PO SCH (08:32)
[2019-08-31] MEDS: carBAMazepine 200 MG TABLET PO SCH ×2 (08:33→21:17)
[2019-08-31] MEDS: LORATADINE 10 MG TAB PO SCH (08:33)
[2019-08-31] MEDS: ASPIRIN 81 MG ECTAB PO SCH (08:33)
[2019-08-31] MEDS: SERTRALINE HCL 50 MG TABLET PO SCH (08:33)
[2019-08-31] MEDS: METOPROLOL SUCC 25MG EXT REL TAB PO SCH (08:33)
[2019-08-31] MEDS: UMECLIDINIUM BROMIDE 62.5MCG/BLISTER 7 PUFFS/INHALER INH SCH (08:33)
[2019-08-31] MEDS: FUROSEMIDE 80 MG TAB PO SCH ×2 (08:33→16:28)
[2019-08-31] MEDS: PANTOprazole 40 MG TAB PO SCH (08:33)
[2019-08-31] MEDS: INSULIN ASPART 100 UNITS/ML 3 ML PEN SC SCH ×4 (08:35→21:16)
[2019-08-31] MEDS: POTASSIUM CHLORIDE 20 MEQ TABCR PO SCH ×2 (08:36→21:16)
[2019-08-31] MEDS: DOCUSATE SODIUM 100 MG CAP PO SCH (08:50)
--- NOTE | 2019-08-31 09:57 | XRay Report ---
RIGHT SHOULDER 3 VIEWS HISTORY: right shoulder pain x 1 day, pain limit movement COMPARISON: None. FINDINGS: There is no fracture or dislocation. The right clavicle appears intact. 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 Small focus of calcification at the distal sup raspinatus tendon. There is spurring along the undersurface of the acromion. Small amount of calcific ation at the acromioclavicular joint which may represent chondrocalcinosis. IMPRESSION: 1. No acute fracture or dislocation within the right shoulder. 2. Moderate degenerative change. 3. Mild supraspinatus calcific tendinitis. 4. Suspect chondrocalcinosis. ACT 112: Negative or not required by law. Electronically signed by: Taurus Dill M.D. 08/31/2019 9:55 AM
[2019-08-31] MEDS: ACETAMINOPHEN 325 MG TAB PO PRN (12:42)
[2019-08-31] MEDS: WARFARIN SOD 5 MG TAB PO SCH (16:28)
[2019-08-31] MEDS: MONTELUKAST SODIUM 10 MG TABLET PO SCH (21:17)
[2019-08-31] MEDS: ALBUT/IPRATROP 3MG/0.5MG NEB 3 ML VIAL NEB PRN (21:22)
[2019-09-01] MEDS ORDERED: POTASSIUM CHLORIDE 20 MEQ TABCR PO STA (07:07)
[2019-09-01] MEDS: ACETAMINOPHEN 325 MG TAB PO PRN ×2 (07:45→23:37)
[2019-09-01] MEDS: LORazepam 0.5 MG TAB PO SCH ×2 (08:21→21:23)
[2019-09-01] MEDS: ASPIRIN 81 MG ECTAB PO SCH (08:23)
[2019-09-01] MEDS: SERTRALINE HCL 50 MG TABLET PO SCH (08:23)
[2019-09-01] MEDS: LORATADINE 10 MG TAB PO SCH (08:23)
[2019-09-01] MEDS: PANTOprazole 40 MG TAB PO SCH (08:24)
[2019-09-01] MEDS: ROSUVASTATIN CALCIUM 10 MG TAB PO SCH (08:24)
[2019-09-01] MEDS: LOSARTAN POTASSIUM 25 MG TAB PO SCH (08:24)
[2019-09-01] MEDS: POTASSIUM CHLORIDE 20 MEQ TABCR PO SCH ×2 (08:26→21:26)
[2019-09-01] MEDS: UMECLIDINIUM BROMIDE 62.5MCG/BLISTER 7 PUFFS/INHALER INH SCH (08:26)
[2019-09-01] MEDS: carBAMazepine 200 MG TABLET PO SCH ×2 (08:26→21:23)
[2019-09-01] MEDS: METOPROLOL SUCC 25MG EXT REL TAB PO SCH (08:27)
[2019-09-01] MEDS: THEOPHYLLINE 400 MG EXTENDED REL TAB PO SCH (08:27)
[2019-09-01] MEDS: INSULIN ASPART 100 UNITS/ML 3 ML PEN SC SCH ×4 (08:28→21:21)
[2019-09-01] MEDS: DOCUSATE SODIUM 100 MG CAP PO SCH (08:32)
[2019-09-01] MEDS: POTASSIUM CHLORIDE / WTR 10 MEQ/100 ML PLCT IV SCH ×2 (08:48→09:39)
--- NOTE | 2019-09-01 10:41 | Hospitalist Progress Note ---
Date of Service September 01, 2019 Assessment & Plan (1) Chest pain: Chest pain, possible from Angina Pectoris (acute coronary syndrome ruled out) Paroxysmal atrial fibrillation Anticoagulated by coumadin therapy Presence of pacemaker Hypertension history of coronary artery disease -history of CABG in 1984, mid LAD, SVG to diagonal. 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 Patient states the chest pain originally started earlier this evening after dinner. Patient states chest pain began to slowly radiate up towards his neck and left jaw -admitting physician was concerned that patient at risk of acute coronary syndrome based on patient's cardiac history. His troponins were under the reference of normal. INR is 2.2 from patient's home dose coumadin and patient already systemically anticoagulated -cardiology Dr. Powell evaluating the patient on 08/27/2019. Echocardiogram performed on 08/27/2019 with moderately sized anteroseptal wall motion with dyskinesis of the segments. Left ventricular ejection fraction between 50 to 55% -this is in comparison to previous studies "-Nuclear stress test performed in [place] in August, revealed evidence of an apical and septal scar, LVEF at the lower limit of normal. Echocardiogram performed [facility] 12/25/2018: Moderate sized septal wall motion abnormality LVEF 53%, moderate left atrial argument, mild mitral regurgitation mild tricuspid regurgitation, estimated pulmonary systolic pressure mildly elevated 39 mmHg." -Patient denies chest pain since midnight. He has been generally comfortable today. on room air. no shortness of breath. advised patient continue to be monitor on telemetry overnight and if any new symptoms that he should inform the nurse immediately -continue home dose losartan 25 mg daily for blood pressure, continue metoprolol succinate 25 mg daily for heart rate control, continue statin as rosuvastatin 10 mg daily -08/28/2019: cardiology increased the coumadin and added aspirin and recommended further monitoring inpatient on telemetry. patient upgraded to full admission. hospitalist resuming home dose furosemide 80 mg BID starting evening of 08/28/2019 -08/29/2019: no chest pain today. no symptoms. cardiology Dr. Powell suspected that patient had episode of chest pain from possible Angina pectoris and that patient can be discharged to [facility] -08/30/2019: Patient remained in hospital because on 08/29/2019 as per welfare case worker that [facility] "want insurance auth now too before he goes back. Also there is no transportation now. So unfortunately he can not go today". also because awaiting results of 08/29/2019 COVID-19 screening test results prior to correction return. when patient is discharge to [facility] these are the following directions: (discharge [place] [address] as aspirin 81 mg daily, rosuvastatin 10 mg daily, warfarin 5 mg daily, carbamazipine 400 mg every 12 hours Patient should have INR recheck in 3 to 6 days from hospital discharge, and carbamazepine level for history of trigeminal neuralgia checked by primary care doctor visit 09/08/2019 1:00 PM Provider Teofilo Eason PA-C Department Family [facility] 09/15/2019 4:15 PM Provider Vijay Montanez MD Department Ophthalmology, [place] 09/22/2019 11:00 AM Provider Jerry Echols PA-C Department Cardiology [facility] 10/08/2019 3:30 PM Provider Jerry Echols PA-C Department Cardiology [facility] 10/16/2019 8:00 AM Provider [facility] Department Cardiology [facility]) Hypokalemia -patient has serum potassium of 3 on 09/01/2019. given additional potassium supplements and plan to recheck the labs at noon time Right shoulder pain -right shoulder pain limiting passive and active range of motion. patient reported this pain started on 08/30/2019 while sitting up in the chair. he was given tramadol as per nurse at that time. patient in AM of 08/31/2019 continues to have right shoulder pain and not really allowing physician to lift up his ri ght arm because of pain. -right shoulder X ray -prn pain medications, ice as needed to right shoulder -right shoulder pain and mobility improving by 09/01/2019 chronic respiratory failure secondary to COPD -has home O2 -pulmonary status appears to be at baseline -on Spiriva inhaler and theophylline at [facility], continue -generally patient has been able to breathe comfortably on room air in the hospital and maintain the oxygen saturation trigeminal neuralgia -no acute facial pain at this time -on carbamazepine as outpatient -carbamazepine level is 12.1 mcg/ml in context to reference ranges of 4mcg/ml to 12mcg/ml. continue carbamazepine as reduced dose of 400 mg q12 hours for now DM 2 diet-controlled -well-controlled as of recent outpatient hemoglobin A1c of 5.08 January 2019 Chronic anemia -hemoglobin at baseline DVT prophylaxis: on coumadin 5 mg daily, check INR Admission and Anticipated Discharge Date Admission Date: August 28, 2019 Subjective -right shoulder pain and mobility improving by 09/01/2019 patient has serum potassium of 3 on 09/01/2019. given additional potassium supplements and plan to recheck the labs at noon time breathing on room air. no chest pain. no abdomen pain. no nausea. no vomiting. no dizziness. no headache Review of Systems Review of Systems: All systems reviewed & are unremarkable except as noted in Subjective Physical Exam Constitutional: WD/WN, vitals as above Eyes: PERRL, conjunctivae normal, anicteric sclerae EOM intact bilaterally ENMT: external ear and nose normal, oropharynx normal Neck: trachea midline, no thyromegaly normal visual inspection Respiratory: normal respiratory effort, lungs clear to auscultation Cardiovascular: Rate/Rhythm: + bradycardic Gastrointestinal (Abdomen): normal bowel sounds, soft, nontender, no hepatosplenomegaly Musculoskeletal: Head/Neck/Chest: normocephalic and head atraumatic Neurologic: PERRL, EOMI, accommodation nl, no face palsy, no dysarthria CN's II-XI intact bilaterally Psychiatric: A+Ox3, euthymic affect Results & Data Results & Data ([facility]) Vital Signs (Past 12 Hours) Vital Signs Temp Pulse Resp BP Pulse Ox 09/01/19 07:29 36.9 C 63 18 121/66 91 09/01/19 02:30 37.4 C 66 18 114/62 93 (1) Chest pain Chest pain type: unspecified Qualified Code(s): R07.9 - Chest pain, unspecified
[2019-09-01] MEDS ORDERED: CALCIUM GLUCONATE 10% 1,000 MG in SODIUM CHLORIDE 0.9% 50 ML IV STA (12:08)
[2019-09-01] MEDS ORDERED: MAGNESIUM SULFATE / D5W 1 GM/100 ML BAG IV ONE (12:15)
[2019-09-01 12:37] LABS: BUN Creatinine Ratio 14.7 (10-20); Calcium 8.3 mg/dl (8.5-10.1); Creatinine Clr Calc Pharmacy 49.1 ml/min; Est GFR (African American) 72.8; Est GFR (Non-African American) 62.8; Potassium 4.2 mmol/L (3.5-5.1)
[2019-09-01 12:50] LABS: INR 2.4 (0.9-1.1); Prothrombin Time 23.9 Seconds (9.0-12.0)
[2019-09-01] MEDS: TRAMADOL HCL 50 MG TABLET PO PRN ×2 (17:20→21:23)
[2019-09-01] MEDS: WARFARIN SOD 5 MG TAB PO SCH (17:21)
[2019-09-01] MEDS: MONTELUKAST SODIUM 10 MG TABLET PO SCH (21:23)
[2019-09-01] MEDS: ALBUT/IPRATROP 3MG/0.5MG NEB 3 ML VIAL NEB PRN (22:17)
[2019-09-02 07:05] LABS: Eosinophils # (auto) 0.05 K/uL (0-0.5); Eosinophils % (auto) 0.9 %; Hematocrit (blood only) 29.5 % (42-52); Hemoglobin 9.6 g/dL (14.0-18.0); Immature Granulocytes # (auto) 0.02 K/uL (0.00-0.02); Immature Granulocytes % (auto) 0.4 %; Lymphocytes # (auto) 1.04 K/uL (1.2-3.4); Lymphocytes % (auto) 18.8 %; Mean Corpuscular Hemoglobin 31.3 pg (25-34); Mean Corpuscular Hgb Conc 32.5 g/dL (32-36); Mean Corpuscular Volume 96.1 fL (80-100); Mean Platelet Volume 9.8 fL (7.4-10.4); Monocytes # (auto) 0.55 K/uL (0.11-0.59); Monocytes % (auto) 9.9 %; Neutrophils # (auto) 3.88 K/uL (1.4-6.5); Platelet Count 156 K/uL (130-400); RDW Coefficient of Variation 14.8 % (11.5-14.5); RDW Standard Deviation 51.5 fL (36.4-46.3); Red Blood Count 3.07 M/uL (4.7-6.1); White Blood Count 5.54 K/uL (4.8-10.8)
[2019-09-02 07:13] LABS: INR 3.1 (0.9-1.1)
[2019-09-02 07:45] LABS: BUN Creatinine Ratio 16.7 (10-20); Creatinine Clr Calc Pharmacy 54.8 ml/min; Est GFR (African American) 83.1; Est GFR (Non-African American) 71.7; Potassium 3.5 mmol/L (3.5-5.1)
[2019-09-02 07:52] LABS: Albumin Globulin Ratio 0.5 (0.9-2); Bilirubin,Total 0.5 mg/dl (0.2-1); Globulin 3.7 gm/dl (2.5-4.0); Total Protein 5.7 gm/dl (6.4-8.2)
[2019-09-02] MEDS: INSULIN ASPART 100 UNITS/ML 3 ML PEN SC SCH ×2 (09:15→12:37)
[2019-09-02] MEDS: LORATADINE 10 MG TAB PO SCH (09:18)
[2019-09-02] MEDS: LORazepam 0.5 MG TAB PO SCH (09:18)
[2019-09-02] MEDS: ROSUVASTATIN CALCIUM 10 MG TAB PO SCH (09:19)
[2019-09-02] MEDS: ASPIRIN 81 MG ECTAB PO SCH (09:19)
[2019-09-02] MEDS: LOSARTAN POTASSIUM 25 MG TAB PO SCH (09:19)
[2019-09-02] MEDS: POTASSIUM CHLORIDE 20 MEQ TABCR PO SCH (09:20)
[2019-09-02] MEDS: UMECLIDINIUM BROMIDE 62.5MCG/BLISTER 7 PUFFS/INHALER INH SCH (09:20)
[2019-09-02] MEDS: METOPROLOL SUCC 25MG EXT REL TAB PO SCH (09:21)
[2019-09-02] MEDS: THEOPHYLLINE 400 MG EXTENDED REL TAB PO SCH (09:21)
[2019-09-02] MEDS: carBAMazepine 200 MG TABLET PO SCH (09:21)
[2019-09-02] MEDS: PANTOprazole 40 MG TAB PO SCH (09:21)
[2019-09-02] MEDS: SERTRALINE HCL 50 MG TABLET PO SCH (09:22)
[2019-09-02] MEDS: ACETAMINOPHEN 325 MG TAB PO PRN (09:26)
--- NOTE | 2019-09-02 11:03 | Hospitalist Progress Note ---
Date of Service September 02, 2019 Assessment & Plan (1) Chest pain: Chest pain, possible from Angina Pectoris (acute coronary syndrome ruled out) Paroxysmal atrial fibrillation Anticoagulated by coumadin therapy Presence of pacemaker Hypertension history of coronary artery disease -history of CABG in 1984, mid LAD, SVG to diagonal. 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 Patient states the chest pain originally started earlier this evening after dinner. Patient states chest pain began to slowly radiate up towards his neck and left jaw -admitting physician was concerned that patient at risk of acute coronary syndrome based on patient's cardiac history. His troponins were under the reference of normal. INR is 2.2 from patient's home dose coumadin and patient already systemically anticoagulated -cardiology Dr. Powell evaluating the patient on 08/27/2019. Echocardiogram performed on 08/27/2019 with moderately sized anteroseptal wall motion with dyskinesis of the segments. Left ventricular ejection fraction between 50 to 55% -this is in comparison to previous studies "-Nuclear stress test performed in [place] in August, revealed evidence of an apical and septal scar, LVEF at the lower limit of normal. Echocardiogram performed [facility] 12/25/2018: Moderate sized septal wall motion abnormality LVEF 53%, moderate left atrial argument, mild mitral regurgitation mild tricuspid regurgitation, estimated pulmonary systolic pressure mildly elevated 39 mmHg." -Patient denies chest pain since midnight. He has been generally comfortable today. on room air. no shortness of breath. advised patient continue to be monitor on telemetry overnight and if any new symptoms that he should inform the nurse immediately -continue home dose losartan 25 mg daily for blood pressure, continue metoprolol succinate 25 mg daily for heart rate control, continue statin as rosuvastatin 10 mg daily -08/28/2019: cardiology increased the coumadin and added aspirin and recommended further monitoring inpatient on telemetry. patient upgraded to full admission. hospitalist resuming home dose furosemide 80 mg BID starting evening of 08/28/2019 -08/29/2019: no chest pain today. no symptoms. cardiology Dr. Powell suspected that patient had episode of chest pain from possible Angina pectoris and that patient can be discharged to [facility] -08/30/2019: Patient remained in hospital because on 08/29/2019 as per insurance case manager that [facility] "want insurance auth now too before he goes back. Also there is no transportation now. So unfortunately he can not go today". also because was awaiting results of 08/29/2019 COVID-19 screening test results prior to prison return. 09/02/2019: COVID 19 screening test returned as negative and discharge to [facility] these are the following directions: (discharge [place] [address] as aspirin 81 mg daily, rosuvastatin 10 mg daily, warfarin 5 mg daily, carbamazipine 400 mg every 12 hours Patient should have INR recheck in 3 to 6 days from hospital discharge, and carbamazepine level for history of trigeminal neuralgia checked by primary care doctor visit 09/08/2019 1:00 PM Provider Teofilo Eason PA-C Department Family [facility] 09/15/2019 4:15 PM Provider Vijay Montanez MD Department Ophthalmology, [place] 09/22/2019 11:00 AM Provider Jerry Echols PA-C Department Cardiology [facility] 10/08/2019 3:30 PM Provider Jerry Echols PA-C Department Cardiology [facility] 10/16/2019 8:00 AM Provider [facility] Department Cardiology [facility]) Hypokalemia -patient has serum potassium of 3 on 09/01/2019. given additional potassium supplements and plan to recheck the labs at noon time Right shoulder pain -right shoulder pain limiting passive and active range of motion. patient reported this pain started on 08/30/2019 while sitting up in the chair. he was given tramadol as per nurse at that time. patient in AM of 08/31/2019 continues to have right shoulder pain and not really allowing physician to lift up his right arm because of pain. -right shoulder X ray -prn pain medications, ice as needed to right shoulder -right shoulder pain and mobility improving by 09/01/2019 chronic respiratory failure secondary to COPD -has home O2 -pulmonary status appears to be at baseline -on Spiriva inhaler and theophylline [facility], continue -generally patient has been able to breathe comfortably on room air in the hospital and maintain the oxygen saturation trigeminal neuralgia -no acute facial pain at this time -on carbamazepine as outpatient -carbamazepine level is 12.1 mcg/ml in context to reference ranges of 4mcg/ml to 12mcg/ml. continue carbamazepine as reduced dose of 400 mg q12 hours for now DM 2 diet-controlled -well-controlled as of recent outpatient hemoglobin A1c of 5.08 January 2019 Chronic anemia -hemoglobin at baseline DVT prophylaxis: on coumadin 5 mg daily Admission and Anticipated Discharge Date Admission Date: August 28, 2019 Subjective other than some bilateral knee discomforts. patient without symptoms. no chest pain. no shortness of breath. breathing on room air. no dizziness. no headache. no acute shoulder symptoms. no swelling of the knee. discharge to [facility] today Review of Systems Review of Systems: All systems reviewed & are unremarkable except as noted in Subjective Physical Exam Constitutional: WD/WN, vitals as above Eyes: PERRL, conjunctivae normal, anicteric sclerae EOM intact bilaterally ENMT: external ear and nose normal, oropharynx normal Neck: trachea midline, no thyromegaly normal visual inspection Respiratory: normal respiratory effort, lungs clear to auscultation Cardiovascular: Rate/Rhythm: + bradycardic Gastrointestinal (Abdomen): normal bowel sounds, soft, nontender, no hepatosplenomegaly Musculoskeletal: Head/Neck/Chest: normocephalic and head atraumatic Neurologic: PERRL, EOMI, accommodation nl, no face palsy, no dysarthria CN's II-XI intact bilaterally Psychiatric: A+Ox3, euthymic affect Results & Data Results & Data ([facility]) Vital Signs (Past 12 Hours) Vital Signs Temp Pulse Resp BP Pulse Ox 09/02/19 07:20 36.5 C 61 16 106/60 96 09/02/19 00:29 36.9 C 09/01/19 23:30 37.7 C H 72 18 102/55 L 95 (1) Chest pain Chest pain type: unspecified Qualified Code(s): R07.9 - Chest pain, unspecified
--- NOTE | 2019-09-02 11:05 | Discharge Summary ---
Date of Service September 02, 2019 Admission HPI Per Admitting Provider History obtained from patient and records. 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 Patient confined at [facility] last month for recurrent DVT left lower extremity. INR at that time was noted to be subtherapeutic. Possible medication noncompliance, deconditioning as per records. Patient transferred to [facility] for placement. Last night around dinnertime, patient noted achy left chest pain going to his neck and left jaw similar to heart attacks in the past. No shortness of breath, no diaphoresis. No new cough/flulike symptoms. Relief with aspirin and nitroglycerin administered by EMS. Patient brought to the ER for evaluation. Nitropaste placed at the ER. 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 Principal Diagnosis Chest pain, possible from Angina Pectoris (acute coronary syndrome ruled out) Paroxysmal atrial fibrillation Anticoagulated by coumadin therapy Presence of pacemaker Hypertension history of coronary artery disease Right Shoulder Pain Hypokalemia Discharge Exam Constitutional WD/WN, vitals as above Eyes PERRL, conjunctivae normal, anicteric sclerae EOM intact bilaterally ENMT external ear and nose normal, oropharynx normal Neck trachea midline, no thyromegaly normal visual inspection Respiratory normal respiratory effort, lungs clear to auscultation Cardiovascular Rate/Rhythm: + bradycardic Gastrointestinal (Abdomen) normal bowel sounds, soft, nontender, no hepatosplenomegaly Musculoskeletal Head/Neck/Chest: normocephalic and head atraumatic Neurologic PERRL, EOMI, accommodation nl, no face palsy, no dysarthria CN's II-XI intact bilaterally Psychiatric A+Ox3, euthymic affect Discharge Data Allergies Allergy/AdvReac Type Severity Reaction Status Date / Time dalteparin,porcine Allergy Unknown Verified 08/27/19 00:17 enalapril Allergy Unknown Verified 08/27/19 00:17 erythromycin base Allergy Unknown Verified 08/27/19 00:17 lidocaine Allergy Unknown Verified 08/27/19 00:17 Penicillins Allergy Unknown Verified 08/27/19 00:17 propofol Allergy Unknown Verified 08/27/19 00:17 simvastatin [From Zocor] Allergy Unknown Verified 08/27/19 00:17 tinzaparin,porcine Allergy Unknown Verified 08/27/19 00:17 anesthesia [id number] Allergy Unknown Uncoded 08/27/19 00:17 LWM Heparin Allergy Unknown Uncoded 08/27/19 00:17 porcine extract skin test Allergy Unknown Uncoded 08/27/19 00:17 Consultations 08/27/19 01:14 ED Decision to Admit Stat 08/27/19 04:31 Consult Cardiology Routine Hospital Course (1) Chest pain: Chest pain, possible from Angina Pectoris (acute coronary syndrome ruled out) Paroxysmal atrial fibrillation Anticoagulated by coumadin therapy Presence of pacemaker Hypertension history of coronary artery disease -history of CABG in 1984, mid LAD, SVG to diagonal. 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 Patient states the chest pain originally started earlier this evening after dinner. Patient states chest pain began to slowly radiate up towards his neck and left jaw -admitting physician was concerned that patient at risk of acute coronary syndrome based on patient's cardiac history. His troponins were under the reference of normal. INR is 2.2 from patient's home dose coumadin and patient already systemically anticoagulated -cardiology Dr. Powell evaluating the patient on 08/27/2019. Echocardiogram performed on 08/27/2019 with moderately sized anteroseptal wall motion with dyskinesis of the segments. Left ventricular ejection fraction between 50 to 55% -this is in comparison to previous studies "-Nuclear stress test performed in [place] in August, revealed evidence of an apical and septal scar, LVEF at the lower limit of normal. Echocardiogram performed [facility] 12/25/2018: Moderate sized septal wall motion abnormality LVEF 53%, moderate left atrial argument, mild mitral regurgitation mild tricuspid regurgitation, estimated pulmonary systolic pressure mildly elevated 39 mmHg." -Patient denies chest pain since midnight. He has been generally comfortable today. on room air. no shortness of breath. advised patient continue to be monitor on telemetry overnight and if any new symptoms that he should inform the nurse immediately -continue home dose losartan 25 mg daily for blood pressure, continue metoprolol succinate 25 mg daily for heart rate control, continue statin as rosuvastatin 10 mg daily -08/28/2019: cardiology increased the coumadin and added aspirin and recommended further monitoring inpatient on telemetry. patient upgraded to full admission. hospitalist resuming home dose furosemide 80 mg BID starting evening of 08/28/2019 -08/29/2019: no chest pain today. no symptoms. cardiology Dr. Powell suspected that patient had episode of chest pain from possible Angina pectoris and that patient can be discharged to [facility] -08/30/2019: Patient remained in hospital because on 08/29/2019 as per case investigator that [facility] "want insurance auth now too before he goes back. Also there is no transportation now. So unfortunately he can not go today". also because was awaiting results of 08/29/2019 COVID-19 screening test results prior to care home return. 09/02/2019: COVID 19 screening test returned as negative and discharge to [facility] these are the following directions: (discharge [place] [address] as aspirin 81 mg daily, rosuvastatin 10 mg daily, warfarin 5 mg daily, carbamazipine 400 mg every 12 hours Patient should have INR recheck in 3 to 6 days from hospital discharge, and carbamazepine level for history of trigeminal neuralgia checked by primary care doctor visit 09/08/2019 1:00 PM Provider Teofilo Eason PA-C Department Family Practice, [place] 09/15/2019 4:15 PM Provider Vijay Montanez MD Department Ophthalmology, [place] 09/22/2019 11:00 AM Provider Jerry Echols PA-C Department Cardiology [facility] 10/08/2019 3:30 PM Provider Jerry Echols PA-C Department Cardiology [facility] 10/16/2019 8:00 AM Provider Gloria [place] Department Cardiology [place] [facility]) Hypokalemia -patient has serum potassium of 3 on 09/01/2019. given additional potassium supplements and plan to recheck the labs at noon time Right shoulder pain -right shoulder pain limiting passive and active range of motion. patient reported this pain started on 08/30/2019 while sitting up in the chair. he was given tramadol as per nurse at that time. patient in AM of 08/31/2019 continues to have right shoulder pain and not really allowing physician to lift up his right arm because of pain. -right shoulder X ray -prn pain medications, ice as needed to right shoulder -right shoulder pain and mobility improving by 09/01/2019 chronic respiratory failure secondary to COPD -has home O2 -pulmonary status appears to be at baseline -on Spiriva inhaler and theophylline at care home, continue -generally patient has been able to breathe comfortably on room air in the hospital and maintain the oxygen saturation trigeminal neuralgia -no acute facial pain at this time -on carbamazepine as outpatient -carbamazepine level is 12.1 mcg/ml in context to reference ranges of 4mcg/ml to 12mcg/ml. continue carbamazepine as reduced dose of 400 mg q12 hours for now DM 2 diet-controlled -well-controlled as of recent outpatient hemoglobin A1c of 5.08 January 2019 Chronic anemia -hemoglobin at baseline DVT prophylaxis: on coumadin 5 mg daily Total Time Total Time Spent Total Time Spent (In Minutes): 40 minutes Total Time Includes: Examination of the Patient, Discharge Planning, Medication Reconciliation and Communication With Other Providers Discharge Plan Discharge Items Patient Disposition: Transfer [facility] Reason For Visit: [facility] Discharge Diagnosis: Chest pain, possible from Angina Pectoris (acute coronary syndrome ruled out) Paroxysmal atrial fibrillation Anticoagulated by coumadin therapy Presence of pacemaker Hypertension history of coronary artery disease Right Shoulder Pain Hypokalemia Condition on Discharge: Good Activity: Resume your previous activity Non-emergency contact: Primary Care Provider and Manager [place] Call non-emergency contact if: you have any medication questions Follow-up/Referrals: Kerline Oneill [Primary Care Provider] - Diet: Heart Healthy Addtl Attending Provider Instructions: discharge to [facility] discharge [place] [address] as aspirin 81 mg daily, rosuvastatin 10 mg daily, warfarin 5 mg daily, carbamazipine 400 mg every 12 hours Patient should have INR recheck in 3 to 6 days from hospital discharge, and carbamazepine level for history of trigeminal neuralgia checked by primary care doctor visit 09/08/2019 1:00 PM Provider Teofilo Eason PA-C Department Family Practice, [place] 09/15/2019 4:15 PM Provider Vijay Montanez MD Department Ophthalmology, [place] 09/22/2019 11:00 AM Provider Jerry Echols PA-C Department Cardiology [facility] 10/08/2019 3:30 PM Provider Jerry Echols PA-C Department Cardiology [facility] 10/16/2019 8:00 AM Provider Gloria Barr [place] Department Cardiology [facility] Pending Studies at Discharge: No Stand-Alone Forms: My [facility] Skilled Items Patient informed of condition?: Yes DNR: No Discharge Level of Care: Other Communicable Disease: No Discharge Prognosis: Stable Lines: None Urinary Catheter: No Medications and DC Order Prescriptions: New warfarin 5 mg Tablet 5 mg PO DAILY@1600 30 Days Qty: 30 RF: 0 aspirin 81 mg Tablet,Delayed Release (Dr/Ec) 81 mg PO QAM 30 Days Qty: 30 RF: 0 carbamazepine 200 mg Tablet 400 mg PO Q12H 30 Days Qty: 120 RF: 0 rosuvastatin [Crestor] 10 mg Tablet 10 mg PO DAILY 30 Days Qty: 30 RF: 0 Continued ondansetron HCl 4 mg tablet 4 mg PO Q6 PRN (Reason: Nausea And Vomiting) RF: 0 potassium chloride 20 mEq tablet,ER particles/crystals 40 meq PO BID RF: 0 docusate sodium [Colace] 100 mg Capsule 100 mg PO DAILY RF: 0 furosemide 40 mg tablet 80 mg PO BID RF: 0 ipratropium-albuterol 0.5 mg-3 mg(2.5 mg base)/3 mL solution for nebulization 3 ml INHALATION QID RF: 0 lorazepam 0.5 mg tablet 0.25 mg PO BID RF: 0 losartan 25 mg tablet 25 mg PO DAILY RF: 0 montelukast 10 mg tablet 10 mg PO DAILY RF: 0 metoprolol succinate 25 mg tablet extended release 24 hr 25 mg PO DAILY RF: 0 pantoprazole 40 mg tablet,delayed release (DR/EC) 40 mg PO DAILY RF: 0 sertraline 50 mg tablet 50 mg PO DAILY RF: 0 rosuvastatin 10 mg tablet 10 mg PO DAILY RF: 0 theophylline 400 mg tablet extended release 24 hr 400 mg PO DAILY RF: 0 Spiriva with HandiHaler 18 mcg capsule, w/inhalation device 1 cap INHALATION DAILY RF: 0 Discontinued warfarin 5 mg tablet 5 mg PO HS RF: 0 atorvastatin 10 mg tablet 10 mg PO DAILY RF: 0 carbamazepine 300 mg capsule, ER multiphase 12 hr 600 mg PO Q12 RF: 0 loratadine 10 mg tablet 10 mg PO DAILY RF: 0 Discharge Orders: Discharge Order (Routine); Ordered 09/02/19 Ordered By: Emerson Rojas Admission Data Admit Date/Time: 08/28/19 15:33 Attending Provider: Emerson Rojas Admit Provider: Eddi Chávez Primary Care Provider: Kerline Oneill Other Providers: Eddi Chávez ; Darrin Glass Other Interventions: Discharge Summary Assessment (RN) Last Done: 08/29/19 10:17
[2019-09-02] MEDS: DOCUSATE SODIUM 100 MG CAP PO SCH (11:30)
== END 2019-09-02 14:56 | DRG 303 ==
LOC: ED 23:24 → 2S 23:24 → 2W 08-30 → 3E 09-01 02:31